=== PATIENT | female | born 1965 | race Caucasian/White ===

== ENCOUNTER 2016-12-17 18:40 | Emergency (ER) | payer MEDICAID ==
[2016-12-17 18:46] VITALS: BP 148/72; PULSE 87; RESP 20; TEMP 98
--- NOTE | 2016-12-17 19:03 | XR ---
EXAMINATION TYPE: XR hand complete LT DATE OF EXAM: 12/17/2016 7:00 PM COMPARISON: NONE HISTORY: Hand pain TECHNIQUE: 3 views FINDINGS: I see no fracture nor dislocation. Joint spaces are fairly normal. There are no erosions. IMPRESSION: Negative left hand exam.
--- NOTE | 2016-12-17 19:29 | ED ---
General Adult HPI - General Chief complaint: Extremity Problem,Nontraumatic Stated complaint: IHS??? left hand pain Time Seen by Provider: 12/17/16 18:47 Source: patient, RN notes reviewed Mode of arrival: ambulatory Limitations: no limitations - History of Present Illness Initial comments: Patient 51-year-old female who presents emergency room today with a chief complaint of increased pain to the left hand over the MCP joint of the fifth digit. Patient admits to tenderness locally worse with flexion. 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 States she's tried ibuprofen with little relief. She denies any significant injury or trauma. Patient denies any recent fever, chills , shortness of breath, chest pain, back pain, abdominal pain, nausea or vomiting , numbness or tingling, dysuria or hematuria, constipation or diarrhea, headaches or visual changes, or any other complaints. - Related Data Home Medications Medication Instructions Recorded Confirmed Metoprolol Succinate [Toprol XL] 25 mg PO DAILY 07/29/14 10/10/14 Previous Rx's Medication Instructions Recorded Famotidine [Pepcid] 20 mg PO BID #30 tablet 10/10/14 Allergies Allergy/AdvReac Type Severity Reaction Status Date / Time citalopram hydrobromide Allergy Unknown Verified 12/17/16 18:46 [From Celexa] codeine Allergy Unknown Verified 12/17/16 18:46 Sulfa (Sulfonamide Allergy Unknown Verified 12/17/16 18:46 Antibiotics) Review of Systems ROS Statement: Those systems with pertinent positive or pertinent negative responses have been documented in the HPI. ROS Other: All systems not noted in ROS Statement are negative. Past Medical History Additional Past Medical History / Comment(s): irregular heartbeat History of Any Multi-Drug Resistant Organisms: None Reported Past Surgical History: Cholecystectomy Past Psychological History: No Psychological Hx Reported Smoking Status: Never smoker Past Alcohol Use History: Occasional Past Drug Use History: None Reported General Exam - General Exam Comments Initial Comments: General: The patient is awake and alert, in no distress, and does not appear acutely ill. Neck: The neck is supple, there is no tenderness or JVD. Cardiovascular: There is a regular rate and rhythm. No murmur, rub or gallop is appreciated. Respiratory: Lungs are clear to auscultation, respirations are non-labored, breath sounds are equal. No wheezes, stridor, rales, or rhonchi. Musculoskeletal: Patient has normal appearance of the left hand no obvious swelling or bruising. Shows good range of motion slightly decreased flexion at the fifth digit at the MCP joint. Patient's sensation intact pulses equal bilaterally 2+. Strength 4/5 due to pain. Locally tender over the full her aspect of the fifth MCP joint of left hand. Neurological: A&O x 3. CN II-XII intact, There are no obvious motor or sensory deficits. Coordination appears grossly intact. Speech is normal. Skin: Skin is warm and dry and no rashes or lesions are noted. Psychiatric: Normal mood and affect. Limitations: no limitations Course Vital Signs 12/17/16 18:43 Temperature 98.0 F Pulse Rate 87 Respiratory 20 Rate Blood Pressure 148/72 O2 Sat by Pulse 100 Oximetry Medical Decision Making - Medical Decision Making X-ray reviewed and are unremarkable. Patient advised continue with anti- inflammatories ice the area and follow-up with orthopedics. Advised return for any other concerns. Disposition Clinical Impression: Hand strain Disposition: HOME SELF-CARE Condition: Good Instructions: Muscle Strain (ED) Additional Instructions: Please use medication as discussed. Follow-up orthopedics over the next 2 days. Please return to emergency room if the symptoms increase or worsen or for any other concerns. Referrals: Gideon Kothari DO [Primary Care Provider] - 1-2 days Bill Woodard DO [Doctor of Osteopathic Medicine] - 1-2 days Time of Disposition: 19:29
== END 2016-12-17 19:37 | disposition home or self-care (01) ==
LOC: EC 18:40
DX: S66.912A Strain of unspecified muscle, fascia and tendon at wrist and hand level, left hand, initial encounter (principal); Z88.5 Allergy status to narcotic agent; Z88.2 Allergy status to sulfonamides; Z88.8 Allergy status to other drugs, medicaments and biological substances; X58.XXXA Exposure to other specified factors, initial encounter
CPT/HCPCS: 99283

== ENCOUNTER → 2017-01-01 | Outpatient (CLI) | payer MEDICAID ==
--- NOTE | 2017-01-01 23:46 | WWHP ---
DATE OF DICTATION: 01/01/2017 CHIEF COMPLAINT: The patient is here for her routine gynecologic exam and mammogram. HISTORY OF PRESENT ILLNESS: This is a 51-year-old with an LMP of 11/16/16. She has brought in her menstrual calendar. Her menses have been fairly regular, about every 3-1/2 to 4 weeks. They are typically lasting 3 days. She did not have a period in November. She is without gynecologic complaints. She has had occasional hot flashes. PAST MEDICAL HISTORY: 1. Gastroesophageal reflux disease. 2. Chronic back problems. 3. History of irregular heartbeat. 4. Seasonal allergies. MEDICATIONS: 1. Omeprazole 40 mg daily. 2. Toprol XL 25 mg daily. 3. Loratadine p.r.n. ALLERGIES: 1. SULFA. 2. CODEINE. 3. CELEXA. 4. ZOLOFT. 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 She has no history of STDs. SOCIAL HISTORY: She denies tobacco and drug use and has 1 to 3 alcoholic drinks per week. 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 FAMILY HISTORY: Unchanged from the 2015 H&P. REVIEW OF SYSTEMS: Weight has been stable. She denies respiratory, cardiac or GI problems. PHYSICAL EXAM: Blood pressure 132/79. Height 5 feet 6 inches. Weight 227 pounds. Temperature 98.4. Pulse 79. This is a well-developed heavyset white female who is alert and oriented x3, in no acute distress. HEENT is within normal limits. NECK: Supple without mass or thyromegaly. CHEST AND LUNGS: Clear to auscultation. HEART: Regular rate and rhythm. Breasts are without mass or discharge. Axillary exam is negative for adenopathy. BACK: Negative for CVA tenderness. ABDOMEN: Soft, nontender, without palpable masses. PELVIC EXAM: Normal external genitalia. Cervix and vagina reveal a small amount of menstrual-type blood near the cervical os. The cervix is without lesions. There is no evidence of prolapse. The uterus is midposition, nongravid size and nontender. There are no palpable adnexal masses or tenderness. Rectovaginal exam is negative for mass or tenderness and is negative for occult blood. EXTREMITIES: Nontender. IMPRESSION: 1. A 51-year-old female with normal gynecologic exam. 2. Occasional mild vasomotor symptoms, possible perimenopause. PLAN: 1. Pap smear was performed. 2. Self breast examination was discussed. 3. Mammogram will be done today. 4. The patient will again keep a menstrual calendar. 5. I have recommended screening colonoscopy, and she states she will be seeing Dr. Gross for this. 6. She will return in one year.
--- NOTE | 2017-01-03 07:38 | MM ---
Reason for exam: screening (asymptomatic). Last mammogram was performed 1 year ago. History: Patient history of other cancer. Benign US left guided VAD of the left breast, December 13, 2008. Benign core biopsy of the right breast, December 17, 2006. Took hormonal contraceptives beginning at age 16. Physical Findings: A clinical breast exam by your physician is recommended on an annual basis and results should be correlated with mammographic findings. MG 3D Screening Mammo W/Cad Bilateral CC and MLO view(s) were taken. Prior study comparison: January 16, 2016, right breast MG 3d work up w/cad RT. January 10, 2016, bilateral MG screening mammo w CAD. The breast tissue is heterogeneously dense. This may lower the sensitivity of mammography. Previous mammotome biopsy in the right breast. No significant changes when compared with prior studies. ASSESSMENT: Benign, BI-RAD 2 RECOMMENDATION: Routine screening mammogram of both breasts in 1 year.
== END | disposition home or self-care (01) ==
LOC: WWCWWP 12:47
PROVIDERS: ATTEND Obstetrics & Gynecology
DX: Z12.31 Encounter for screening mammogram for malignant neoplasm of breast (principal)
CPT/HCPCS: 77063; G0202

== ENCOUNTER → 2017-04-25 | Outpatient (CLI) | payer MEDICAID ==
[2017-04-25 10:19] LABS: Basophils # (A) 0.1 k/uL (0-0.2); Basophils % (A) 1 %; CH 29.2; CHCM 33.5; Eosinophils # (A) 0.3 k/uL (0-0.7); Eosinophils % (A) 4 %; HCT 38.5 % (34.0-46.0); HDW 2.87; HGB 13.4 gm/dL (11.4-16.0); Luc # (Auto) 0.15; Luc % (Auto) 2; Lymphocytes # (A) 1.5 k/uL (1.0-4.8); Lymphocytes % (A) 20 %; MCH 30.5 pg (25.0-35.0); MCHC 34.8 g/dL (31.0-37.0); MCV 87.8 fL (80.0-100.0); Mean Platelet Volume 7.1; Monocytes # (A) 0.3 k/uL (0-1.0); Monocytes % (A) 4 %; Neutrophils # (A) 5.1 k/uL (1.3-7.7); Neutrophils % (A) 70 %; RBC 4.39 m/uL (3.80-5.40); RDW 13.9 % (11.5-15.5); WBC 7.3 k/uL (3.8-10.6); WBC (Perox) 7.47
[2017-04-25 10:21] LABS: Anion Gap 13 mmol/L; Carbon Dioxide 23 mmol/L (22-30); Chloride 104 mmol/L (98-107); Glucose 103 mg/dL (74-99); Potassium 4.1 mmol/L (3.5-5.1); Sodium 140 mmol/L (137-145)
[2017-04-25 10:22] LABS: ALT 39 U/L (9-52); AST 23 U/L (14-36); Alkaline Phosphatase 83 U/L (38-126); Blood Urea Nitrogen 11 mg/dL (7-17); Calcium 8.7 mg/dL (8.4-10.2); Cholesterol 173 mg/dL (<200); HDL Cholesterol 54 mg/dL (40-60); Non-African American GFR(MDRD) >60 (>60 ml/min/1.73 sqM); Total Protein 7.1 g/dL (6.3-8.2); Triglycerides 64 mg/dL (<150)
== END | disposition home or self-care (01) ==
LOC: LABWHC1 09:19
PROVIDERS: ATTEND Family Medicine
DX: Z00.00 Encounter for general adult medical examination without abnormal findings (principal); I10 Essential (primary) hypertension
CPT/HCPCS: 36415; 80053; 80061; 82652; 84443; 85025

== ENCOUNTER → 2018-02-10 | Outpatient (CLI) | payer MEDICAID ==
--- NOTE | 2018-02-10 16:13 | XR ---
PA chest x-ray with right RIBS HISTORY: Chest pain Frontal view of the chest, 4 views of the right RIBS There is no evident airspace disease, pneumothorax, or pleural effusion. Cardiomediastinal silhouette , pulmonary vascularity and marie within normal limits. No evident displaced rib fracture. Surgical cl ips present in the right upper quadrant. IMPRESSION: No acute abnormality. Bone scan may be of benefit.
== END | disposition home or self-care (01) ==
LOC: RADXRYALE 15:05
PROVIDERS: ATTEND Family Medicine
DX: R07.89 Other chest pain (principal)

== ENCOUNTER → 2018-03-18 | Outpatient (CLI) | payer MEDICAID ==
[2018-03-18 13:49] VITALS: BP 134/83; PULSE 72; TEMP 98.1; BMI 35.5
--- NOTE | 2018-03-18 14:28 | P.HPOB ---
History of Present Illness H&P Date: 03/18/18 Chief Complaint: The patient is here for her routine gynecologic exam and mammogram. This is a 52-year-old with an LMP of 5 to 18. She is on Tri-Sprintec for control. She was started on the control pill by Dr. Alamo in August 2017. She had some breakthrough bleeding in September but periods have been regular every month since then. She has had some breast tenderness in the morning during the past 2 weeks. She is otherwise without gynecologic complaints. Review of Systems The patient has lost 7 pounds over the last year. She denies respiratory, cardiac, or G.I. problems. Past Medical History Past Medical History: GERD/Reflux Additional Past Medical History / Comment(s): irregular heartbeat. Chronic back problems and seasonal allergies. 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 She has no history of STDs. She has had for vaginal deliveries. History of Any Multi-Drug Resistant Organisms: None Reported Past Surgical History: Cholecystectomy Additional Past Surgical History / Comment(s): Colonization of the cervix in the past. Past Psychological History: No Psychological Hx Reported Smoking Status: Unknown if ever smoked Past Alcohol Use History: Occasional (2 or 3 per week) Past Drug Use History: None Reported Additional History: She is and has been with her boyfriend since March 2017. She does not live with him. He lives out of [facility]. 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 [employer] - Past Family History Father Family Medical History: Cancer (Prostate), CVA/TIA, Myocardial Infarction (PR) Mother Family Medical History: Congestive Heart Failure (CHF), Diabetes Mellitus, Hypertension Medications and Allergies Home Medications Medication Instructions Recorded Confirmed Type Metoprolol Succinate [Toprol XL] 25 mg PO DAILY 07/29/14 03/18/18 History Famotidine [Pepcid] 20 mg PO BID #30 tablet 10/10/14 03/18/18 Rx Norgestimate-Ethinyl Estradiol 1 tab PO DAILY 03/18/18 03/18/18 History [Tri-Sprintec Tablet] Allergies Allergy/AdvReac Type Severity Reaction Status Date / Time citalopram hydrobromide Allergy Unknown Verified 03/18/18 13:46 [From Celexa] codeine Allergy Unknown Verified 03/18/18 13:46 Sulfa (Sulfonamide Allergy Unknown Verified 03/18/18 13:46 Antibiotics) Exam - Vital Signs Vital signs: Vital Signs Temp Pulse BP 03/18/18 13:46 98.1 F 72 134/83 Intake and Output 03/17/18 03/18/18 03/18/18 22:59 06:59 14:59 Other: Weight 99.79 kg Height 5'6", BMI 35.5. This is a well-developed well-nourished heavyset white female who is alert and oriented times 3 in no acute distress. HEENT: Within normal limits. NECK: Supple without mass or thyromegaly. CHEST AND LUNGS: Clear to auscultation. There is tenderness over the lower right ribs. She has been undergoing workup for this discomfort. HEART: Regular rate and rhythm. BREASTS: Are without mass or discharge. AXILLARY EXAM: Negative for adenopathy. BACK: Negative for CVA tenderness. ABDOMEN: Soft, nontender, without palpable masses. PELVIC EXAM: Normal external genitalia. Cervix and vagina appear normal. There is no unusual discharge. There is no evidence of prolapse. The uterus is midposition, nongravid size and nontender. There are no palpable adnexal masses or tenderness. RECTAL EXAM: rectovaginal exam is negative for mass or tenderness and is negative for occult blood. EXTREMITIES: Nontender. IMPRESSION: 1. 52 year old female with normal gynecologic exam. 2. The patient is doing well on oral contraception which was started by her primary care physician for control. PLAN: 1. Pap smear was deferred since she had a normal one last year. 2. Self breast awareness was discussed. 3. Screening mammogram will be done today. 4. We have had a long discussion regarding oral contraception. She understands that she may be at a slightly greater risk for blood clots, heart attack, and stroke while on oral contraception. I have recommended FSH testing at the end of the inactive pill week. An order slip was given to the patient for this. We can do this yearly to determine if she still is in need of contraception. Once determined menopausal, she will not need control. 5. Osteoporosis prevention was discussed. 6. I have recommended screening colonoscopy based on her age. She states she will look into doing this through Dr. Kothari's office. 7. She will return in one year.
--- NOTE | 2018-03-19 11:29 | MM ---
Reason for exam: screening (asymptomatic). Last mammogram was performed 1 year and 2 months ago. History: Patient history of other cancer. Benign US left guided VAD of the left breast, December 13, 2008. Benign core biopsy of the right breast, December 17, 2006. Took hormonal contraceptives beginning at age 16. Physical Findings: A clinical breast exam by your physician is recommended on an annual basis and results should be correlated with mammographic findings. MG 3D Screening Mammo W/Cad Bilateral CC and MLO view(s) were taken. Prior study comparison: January 01, 2017, bilateral MG 3d screening mammo w/cad. January 16, 2016, right breast MG 3d work up w/cad RT. The breast tissue is heterogeneously dense. This may lower the sensitivity of mammography. Previous mammotome biopsy in the left breast. No significant changes when compared with prior studies. ASSESSMENT: Benign, BI-RAD 2 RECOMMENDATION: Routine screening mammogram of both breasts in 1 year.
== END | disposition home or self-care (01) ==
LOC: WWCWWP 13:16
PROVIDERS: ATTEND Obstetrics & Gynecology
DX: Z12.31 Encounter for screening mammogram for malignant neoplasm of breast (principal)
CPT/HCPCS: 77063; 77067

== ENCOUNTER → 2018-03-21 | Outpatient (CLI) | payer MEDICAID ==
--- NOTE | 2018-03-21 15:25 | CT ---
EXAMINATION TYPE: CT abdomen w con DATE OF EXAM: 03/21/2018 HISTORY: RUQ pain and swelling CT DLP: 900.2mGycm Automated Exposure Control for Dose Reduction was Utilized. CONTRAST: CT scan of the abdomen and pelvis is performed with IV Contrast, patient injected with 100 mL of Isov ue 300. COMPARISON: None. FINDINGS: LUNG BASES: There is minimal bibasilar subsegmental dependent atelectasis. Additionally contrast is s een within the distal esophagus that could relate to reflux or retention of contrast. LIVER/GB: No significant abnormality is appreciated. Liver enhances homogeneously without focal mass. No intrahepatic biliary ductal dilatation is seen. Gallbladder is surgically absent. PANCREAS: Pancreas enhances homogeneously without ductal dilatation. SPLEEN: No significant abnormality is seen. ADRENALS: No nodularity or thickening. KIDNEYS: Bilateral small extrarenal pelvises sees are seen. Kidneys enhance and excrete symmetrically without hydronephrosis or focal renal mass. BOWEL: Gastric antral thickening may relate to degree of peristalsis or gastritis in this patient wit h right upper quadrant pain. Appendix is air-filled and within normal limits. Bowel is nondilated. UTERUS/ADNEXA: Partially visualized with no gross abnormality seen. LYMPH NODES: No greater than 1cm abdominal or pelvic lymph nodes are appreciated. OSSEOUS STRUCTURES: Mild sacroiliac joint sclerosis is likely degenerative and overall symmetric. Min imal degenerative changes of the visualized spine are also seen. OTHER: There is mild diastases recti and a tiny subcentimeter fat filled umbilical hernia. IMPRESSION: Circumferential gastric antral mucosal thickening could relate to degree of peristalsis, however this may also relate to gastritis in a patient with right upper quadrant pain. At there is fu rther concern endoscopy could be performed. Additionally there is contrast within the distal esophagu s that could relate to reflux or retention.
== END | disposition home or self-care (01) ==
LOC: RADCTMAIN 12:48
PROVIDERS: ATTEND Family Medicine
DX: R93.3 Abnormal findings on diagnostic imaging of other parts of digestive tract (principal); R10.11 Right upper quadrant pain
CPT/HCPCS: 74160; Q9967

== ENCOUNTER 2018-11-21 12:06 | Day surgery (SDC) | payer MEDICAID ==
[2018-11-19 09:23] VITALS: BMI 38.7
[~2018-11-21 12:06] MED LIST: LACTATED RINGERS 1,000 ML IV SCH
[2018-11-21] MEDS ORDERED: LIDOCAINE 1% 20 ML VIAL (10MG/ML) FOR IV START INTRADERMA ONE (13:10)
[2018-11-21 13:13] VITALS: TEMP 98.9
[2018-11-21] MEDS ORDERED: LIDOCAINE 1% INJ 10MG/ML (20 ML MDV) ONE (13:58)
[2018-11-21] MEDS ORDERED: fentaNYL (PF) 50 MCG/ML 2 ML AMP ONE (13:58)
[2018-11-21] MEDS ORDERED: PROPOFOL 10 MG/ML 20 ML VIAL IV ONE (13:58)
[2018-11-21] MEDS ORDERED: MIDAZOLAM 2 MG/2 ML VIAL ONE (13:58)
--- NOTE | 2018-11-21 14:23 | P.PCN ---
Date of Procedure: 11/21/18 Procedure(s) Performed: Brief history: Patient is a pleasant 53-year-old pleasant white female, scheduled for an elective upper endoscopy as well as colonoscopy as a part of evaluation of right upper quadrant abdominal pain for the last 6 months duration. She is also scheduled for colonoscopy as a part of screening for colorectal neoplasia. Procedure performed: Esophagogastroduodenoscopy with biopsy Colonoscopy Preoperative diagnosis: Right upper quadrant abdominal pain/GERD Screening for colon cancer Anesthesia: MAC Procedure: After informed consent was obtained from the patient was brought into the endoscopy unit and IV sedation was administered by anesthesia under continuous monitoring. Initially upper endoscopy was done. The Olympus GF 160 video endoscope was inserted inserted into the mouth and esophagus intubated without any difficulty and was gradually advanced into the stomach and duodenum and carefully examined. The bulb and second part of the duodenum appeared normal. The scope was then withdrawn into the stomach adequately insufflated with air and upon careful examination the antrum had mild gastritis and biopsies were done from this area. The small gastric polyps and in the body of the stomach which were also biopsied. Rest of the body, cardia and fundus appeared normal. The scope was then withdrawn into the esophagus. The GE junction was located at 40 cm to the incisors. It appeared regular with no erythema erosions or ulcerations. Rest of the esophagus appeared normal. Patient tolerated the procedure well. At this time the patient continued to remain sedation. Initial digital rectal examination was normal. Olympus CF 160 video colonoscope was then inserted into the rectum and gradually advanced to the cecum without any difficulty. Careful examination was performed as the scope was gradually being withdrawn. The prep was excellent. The cecum, ascending colon, transverse colon, descending colon, sigmoid colon and rectum appeared normal. Retroflexion was performed in the rectum and no lesions were noted. Patient tolerated the procedure well. Impression: 1. Upper endoscopy revealed mild gastritis and small gastric polyps 2. Colonoscopy was within normal limits with no evidence of colitis or colorectal neoplasia. Recommendations: Findings of this examination were discussed with the patient as well as her family. She was advised to follow with the biopsy results. She will continue with Prilosec 20 mg twice daily and follow antireflux measures. She will be seen in office in 3-4 weeks.
[2018-11-21 14:30] VITALS: RESP 18
[2018-11-21 14:55] VITALS: BP 136/86; PULSE 71
== END 2018-11-21 15:15 | disposition home or self-care (01) ==
LOC: ORWHC2ENDO 12:06
PROVIDERS: ATTEND Internal Medicine Gastroenterology
DX: Z12.11 Encounter for screening for malignant neoplasm of colon (principal); K29.50 Unspecified chronic gastritis without bleeding; K31.7 Polyp of stomach and duodenum; K21.9 Gastro-esophageal reflux disease without esophagitis; Z79.1 Long term (current) use of non-steroidal anti-inflammatories (NSAID); Z79.3 Long term (current) use of hormonal contraceptives; Z79.899 Other long term (current) drug therapy; Z88.5 Allergy status to narcotic agent; Z88.2 Allergy status to sulfonamides; Z88.8 Allergy status to other drugs, medicaments and biological substances; Z91.09 Other allergy status, other than to drugs and biological substances
CPT/HCPCS: 88305; 43239; J2250; J2001; J3010; J2704; G0121

== ENCOUNTER → 2019-06-09 | Outpatient (CLI) | payer MEDICAID ==
[2019-06-09 11:35] VITALS: BP 118/76; PULSE 68; RESP 18; TEMP 98.3; BMI 38.2
--- NOTE | 2019-06-09 12:33 | P.HPOB ---
History of Present Illness H&P Date: 06/09/19 Chief Complaint: The patient is here for her routine gynecologic exam and ma mmogram. This is a 53 year old with an LMP of 05/20/2019. The patient is without gynecologic complaints. Her menstrual periods are about monthly lasting 2 to 3 days. She denies any significant hot flashes. Review of Systems The patient has gained 16 pounds over the last year. She denies respiratory, cardiac, or G.I. problems. Past Medical History Past Medical History: GERD/Reflux Additional Past Medical History / Comment(s): Irregular heartbeat. Environmental Allergies. States Pain RUQ ABD, UNDER RIBS. Chronic back problems. 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 She had a CKC for high-grade cervical dysplasia years ago. History of Any Multi-Drug Resistant Organisms: None Reported Past Surgical History: Cholecystectomy Additional Past Surgical History / Comment(s): Conization of the cervix in the p ast. Colonoscopy 2019(next after 10yrs) Past Anesthesia/Blood Transfusion Reactions: Motion Sickness Past Psychological History: No Psychological Hx Reported Smoking Status: Former smoker Past Alcohol Use History: Occasional (0-2 per week) Additional Past Alcohol Use History / Comment(s): Previous social smoker and she has quit. Past Drug Use History: None Reported Additional History: She is . She has been with her boyfriend since December 2018. She does not live with him. She works at [employer] in [facility]. - Past Family History Father Family Medical History: Cancer, CVA/TIA, Myocardial Infarction ([place]) Additional Family Medical History / Comment(s): prostate cancer Mother Family Medical History: Congestive Heart Failure (CHF), Diabetes Mellitus, Hypertension Daughter(s) Family Medical History: Cancer Additional Family Medical History / Comment(s): low grade non hodgkins lymphoma of her gums Medications and Allergies Home Medications Medication Instructions Recorded Confirmed Type Norgestimate-Ethinyl Estradiol 1 tab PO 1200 03/18/18 06/09/19 History [Tri-Sprintec Tablet] Ibuprofen [Motrin Ib] 800 mg PO DIRECTED PRN 07/29/18 06/09/19 History Loratadine 10 mg PO QAM 07/29/18 06/09/19 History Metoprolol Succinate (ER) [Toprol 25 mg PO HS 07/29/18 06/09/19 History Xl] Omeprazole 40 mg PO QAM 07/29/18 06/09/19 History Allergies Allergy/AdvReac Type Severity Reaction Status Date / Time codeine Allergy Severe SEVERE Verified 06/09/19 11:16 NAUSEA Sulfa (Sulfonamide Allergy Severe Rash/Hives, Verified 06/09/19 11:16 Antibiotics) SEVER HEADACHE, COULDN'T TALK OR SEE. adhesive Allergy Unknown RED BUMPS, Verified 06/09/19 11:16 SKIN IRRITATION citalopram hydrobromide Allergy HEAD FELT Verified 06/09/19 11:16 [From Celexa] NUMB, DID NOT FEEL WELL. sertraline [From Zoloft] AdvReac Unknown HEAD FELT Verified 06/09/19 11:16 NUMB Exam Vital Signs Temp Pulse Resp BP Pulse Ox 06/09/19 11:17 98.3 F 68 18 118/76 98 Intake and Output 06/08/19 06/09/19 06/09/19 22:59 06:59 14:59 Other: Weight 107.501 kg Height 5'6", weight 237 pounds, BMI 38.3. This is a well-developed well-nourished heavyset white female who is alert and oriented times 3 in no acute distress. HEENT: Within normal limits. NECK: Supple without mass or thyromegaly. CHEST AND LUNGS: Clear to auscultation. HEART: Regular rate and rhythm. BREASTS: Are without mass or discharge. AXILLARY EXAM: Negative for adenopathy. BACK: Negative for CVA tenderness. ABDOMEN: Soft, nontender, without palpable masses. PELVIC EXAM: Normal external genitalia. Cervix and vagina appear normal. There is no unusual discharge. There is no evidence of prolapse. The uterus is midposition, nongravid size and nontender. There are no palpable adnexal masses or tenderness. RECTAL EXAM: rectovaginal exam is negative for mass or tenderness and is negative for occult blood. EXTREMITIES: Nontender. IMPRESSION: 1. 53-year-old female with normal gynecologic exam. 2. The patient is on oral contraception which was started by her primary care physician for control. PLAN: 1. Pap smear was performed. 2. Self breast awareness was discussed with the patient. 3. Screening mammogram will be done today. 4. We discussed possible FSH testing when she is at the end of her inactive pill week, or a trial off of the control pills to determine if she still is in need of contraception. If we determine that she has menopausal, she will not need control. She would like to have blood testing at the end of her inactive pill week. This will be FSH and estradiol testing. The order slip was given to the patient for this. If she is determined to be menopausal, we will be allowed to discontinue the control pills. 5. Osteoporosis prevention was discussed. I have stressed the importance of adequate calcium, vitamin D and regular exercise. Recommended amounts of calcium and vitamin D were also discussed. 6. She was advised to return in one year for her annual well woman exam.
--- NOTE | 2019-06-11 10:37 | MM ---
Reason for exam: screening (asymptomatic). Last mammogram was performed 1 year and 3 months ago. History: Patient history of other cancer. Benign US left guided VAD of the left breast, December 13, 2008. Benign core biopsy of the right breast, December 17, 2006. Took hormonal contraceptives beginning at age 16. Physical Findings: A clinical breast exam by your physician is recommended on an annual basis and results should be correlated with mammographic findings. MG 3D Screening Mammo W/Cad Bilateral CC and MLO view(s) were taken. XCCL view(s) were taken of the right breast. Prior study comparison: March 18, 2018, bilateral MG 3d screening mammo w/cad. January 01, 2017, bilateral MG 3d screening mammo w/cad. The breast tissue is heterogeneously dense. This may lower the sensitivity of mammography. Benign appearing bilateral calcifications. No suspicious abnormality. Left biopsy marker noted. No significant changes when compared with prior studies. ASSESSMENT: Benign, BI-RAD 2 RECOMMENDATION: Routine screening mammogram of both breasts in 1 year.
== END ==
LOC: WWCWWP 11:09
PROVIDERS: ATTEND Obstetrics & Gynecology
DX: Z12.31 Encounter for screening mammogram for malignant neoplasm of breast (principal)
CPT/HCPCS: 77063; 77067

== ENCOUNTER → 2019-06-20 | Outpatient (CLI) | payer MEDICAID ==
[2019-06-20 17:56] LABS: Follicle Stimulating Hormone 31.4 mIU/mL
[2019-06-20 18:09] LABS: Estradiol <11.8 pg/mL
== END | disposition home or self-care (01) ==
LOC: LABWHC1 10:37
PROVIDERS: ATTEND Obstetrics & Gynecology
DX: N92.4 Excessive bleeding in the premenopausal period (principal)
CPT/HCPCS: 36415; 82670; 83001

== ENCOUNTER → 2020-01-08 | Outpatient (CLI) | payer MEDICAID ==
[2020-01-08 11:54] LABS: HCT 42.3 % (34.0-46.0); HGB 13.4 gm/dL (11.4-16.0); MCH 27.5 pg (25.0-35.0); MCHC 31.6 g/dL (31.0-37.0); MCV 86.8 fL (80.0-100.0); Mean Platelet Volume 8.1; Platelet Count 273 k/uL (150-450); RBC 4.87 m/uL (3.80-5.40); RDW 14.2 % (11.5-15.5); WBC 6.6 k/uL (3.8-10.6)
[2020-01-08 16:18] LABS: African American GFR (CKD) 112.3 (60.0-200.0); Albumin 4.3 g/dL (3.80-4.90); Albumin/Globulin Ratio 1.65 (1.60-3.17); Anion Gap 11.3 mmol/L (4.00-12.00); Calcium 9.5 mg/dL (8.7-10.3); Carbon Dioxide 25.7 mmol/L (21.6-31.8); Chol/HDL Ratio 3.13; Globulin 2.6 g/dL (1.6-3.3); LDL Cholesterol,Calculated 112.8 mg/dL (0.0-131.0); Non-African American GFR(CKD) 96.9 (60.0-200.0); Potassium 4.4 mmol/L (3.5-5.5); Total Bilirubin 1.4 mg/dL (0.2-1.2); Total Protein 6.9 g/dL (6.2-8.2); VLDL Calculation 15.2 mg/dL (5.00-40.00)
== END | disposition home or self-care (01) ==
LOC: LABWHC1 10:14
PROVIDERS: ATTEND Family Medicine
DX: Z00.00 Encounter for general adult medical examination without abnormal findings (principal); I10 Essential (primary) hypertension; J30.9 Allergic rhinitis, unspecified; Z13.220 Encounter for screening for lipoid disorders; E55.9 Vitamin D deficiency, unspecified
CPT/HCPCS: 36415; 80053; 80061; 82306; 84443; 85027

== ENCOUNTER → 2020-03-31 | Outpatient (CLI) | payer MEDICAID ==
--- NOTE | 2020-03-31 14:40 | XR ---
EXAMINATION TYPE: XR clavicle bilateral DATE OF EXAM: 03/31/2020 COMPARISON: NONE HISTORY: pain TECHNIQUE: 2 views of each clavicle are submitted with a total of 4 views. FINDINGS: Arthropathy of the AC joints bilaterally greater on the right. No acute fracture. No disloc ation. IMPRESSION: AC joint arthropathy greater on the right with no acute fracture.
--- NOTE | 2020-03-31 14:42 | XR ---
EXAMINATION TYPE: XR cervical spine comp DATE OF EXAM: 03/31/2020 COMPARISON: NONE HISTORY: Pain TECHNIQUE: Four views are submitted. FINDINGS: The odontoid is intact. There are no compression deformities. The prevertebral soft tissue structur es are within normal limits. There is degenerative disc disease at levels C3-T1. Findings most marke d at C5-C6 with posterior spondylosis and hypertrophic spur formation. Neural foramina appear to be p atent. IMPRESSION: 1. Multilevel degenerative disc disease with severe changes at C5-C6. There is posterior spondylosis which can result in canal stenosis and foraminal encroachment. Correlate with MRI as clinically warra nted.
--- NOTE | 2020-03-31 14:43 | XR ---
EXAMINATION TYPE: XR shoulder complete BILAT DATE OF EXAM: 03/31/2020 COMPARISON: NONE HISTORY: Pain TECHNIQUE: Three views are submitted. FINDINGS: The osseous structures are intact. There is no acute fracture or dislocation. Arthropathy of the AC joints. IMPRESSION: 1. AC joint arthropathy
== END | disposition home or self-care (01) ==
LOC: RADXRMAIN 13:53
PROVIDERS: ATTEND Emergency Medicine
DX: M50.322 Other cervical disc degeneration at C5-C6 level (principal); M47.812 Spondylosis without myelopathy or radiculopathy, cervical region; M48.02 Spinal stenosis, cervical region; S46.89 Other injury of other muscles, fascia and tendons at shoulder and upper arm level
CPT/HCPCS: 72050

== ENCOUNTER → 2020-04-22 | Outpatient (CLI) | payer MEDICAID ==
--- NOTE | 2020-04-22 15:08 | US ---
EXAMINATION TYPE: US carotid duplex BILAT DATE OF EXAM: 04/22/2020 COMPARISON: NONE CLINICAL HISTORY: H53.8 Other visual disturbances. visual changes for the past 2 weeks, no h/o stroke EXAM MEASUREMENTS: RIGHT: Peak Systolic Velocity (PSV) cm/sec ----- Right CCA: 123 ----- Right ICA: 123 ----- Right ECA: 138 ICA/CCA ratio: 1.0 RIGHT: End Diastole cm/sec ----- Right CCA: 16.9 ----- Right ICA: 45.4 ----- Right ECA: 26.4 LEFT: Peak Systolic Velocity (PSV) cm/sec ----- Left CCA: 93.5 ----- Left ICA: 116.0 ----- Left ECA: 110 ICA/CCA ratio: 1.2 LEFT: End Diastole cm/sec ----- Left CCA: 29.2 ----- Left ICA: 34.4 ----- Left ECA: 1.2 VERTEBRALS (direction of flow): Right Vertebral: Antegrade Left Vertebral: Antegrade Rhythm: Normal Mild homogeneous plaque seen with no significant stenosis . Velocities are approaching 50% narrowing without visual significant plaquing. IMPRESSION: 1. Atheromatous plaquing without significant flow-limiting stenosis. Criteria for Assigning % of Stenosis / Diameter reduction (Estimation based on the indirect measurements of the internal carotid artery velocities (ICA PSV). 1. Normal (no stenosis)=ICA PSV < 125 cm/s: ratio < 2.0: ICA EDV<40 cm/s. 2. Less than 50% stenosis=ICA PSV < 125 cm/s: ratio < 2.0: ICA EDV<40 cm/s. 3. 50 to 69% stenosis=ICA PSV of 125 to 230 cm/s: ration 2.0 ? 4.0: ICA EDV 40-100 cm/s. 4. Greater than 70% stenosis to near occlusion= ICA PSV > 230 cm/s: ratio > 4.0: ICA EDV > 100 cm/s. 5. Near occlusion= ICA PSV velocities may be low or undetectable: variable ratio and ICA EDV. 6. Total occlusion=unable to detect flow.
== END | disposition home or self-care (01) ==
LOC: RADUSWWP 08:09
PROVIDERS: ATTEND Family Medicine
DX: H53.8 Other visual disturbances (principal); M54.2 Cervicalgia; R55 Syncope and collapse
CPT/HCPCS: 93880

== ENCOUNTER → 2020-05-26 | Outpatient (CLI) | payer MEDICAID ==
--- NOTE | 2020-05-27 02:48 | MR ---
EXAMINATION TYPE: MR cervical spine wo con DATE OF EXAM: 05/26/2020 COMPARISON: None HISTORY: Cervicalgia, BALDERAS, weakness Multiplanar multiecho imaging of the cervical spine was performed without contrast. Cervical vertebra have normal alignment. There is mild narrowing of C5-6 disc space. There is small p osterior disc herniation at C5-6 with some impingement on the anterior surface of the cervical spinal cord. The canal measures 6 to 7 mm. I see no edema in the cord. The brainstem is intact. There is no cervical paraspinal mass. Posterior elements are intact. I see no evidence of focal bony destructive process. IMPRESSION: Posterior disc herniation at C5-6 with some mild impingement on the spinal canal. There is 7 mm mild spinal stenosis at C5-6. No edema seen in the cervical spinal cord.
== END | disposition home or self-care (01) ==
LOC: RADMRIMAIN 13:53
PROVIDERS: ATTEND Orthopaedic Surgery Orthopaedic Surgery of the Spine
DX: M48.02 Spinal stenosis, cervical region (principal); M50.822 Other cervical disc disorders at C5-C6 level
CPT/HCPCS: 72141

== ENCOUNTER → 2020-06-07 | Outpatient (CLI) | payer MEDICAID ==
--- NOTE | 2020-06-07 16:15 | XR ---
Bilateral RIBS HISTORY: Pain 4 views of the right ribs and 4 views of the left ribs are submitted Bone mineralization is maintained. No evident displaced rib fracture. No pneumothorax or pleural effu kadi. Thoracic spondylosis is present. Surgical clips are present in the right upper quadrant. IMPRESSION: No acute abnormality. Bone scan could be performed for increased sensitivity as indicated .
== END | disposition home or self-care (01) ==
LOC: RADXRMAIN 14:17
PROVIDERS: ATTEND Physical Medicine & Rehabilitation
DX: M51.34 Other intervertebral disc degeneration, thoracic region (principal); R07.81 Pleurodynia; M79.18 Myalgia, other site; G58.0 Intercostal neuropathy; Z86.79 Personal history of other diseases of the circulatory system
CPT/HCPCS: 71110

== ENCOUNTER → 2020-06-22 | Outpatient (CLI) | payer MEDICAID ==
--- NOTE | 2020-06-26 16:50 | MR ---
EXAMINATION TYPE: MR thoracic spine wo con DATE OF EXAM: 06/22/2020 COMPARISON: None HISTORY: Mid back/rt side pain x 2 years CONTRAST: Performed utilizing 0 mL intravenous Gadavist gadolinium contrast. TECHNIQUE: Multiplanar, multiecho imaging on a 3.0 Magui magnet is performed through the thoracic spi ne. Syrinx is present. This faintly begins approximately the T5 level and becomes more apparent at the in ferior T7 level. This continues through T12. Study is without contrast. Additional evaluation with co ntrast MRI thoracic spine is recommended. Vertebral body alignment is normal. Vertebral body heights are preserved. Disc heights are preserved. Disc hydration levels are preserved. Schmorl's node formation is evident. No spinal canal stenosis is evident. IMPRESSIONS: 1. Mid thoracic spine syrinx. Thoracic spinal cord syrinx extending from T5 through T12 appears larg est at the T7-T8 levels. Recommendations: 1. Additional workup with contrast MRI is recommended.
== END | disposition home or self-care (01) ==
LOC: RADMRIMAIN 18:34
PROVIDERS: ATTEND Physical Medicine & Rehabilitation
DX: G95.0 Syringomyelia and syringobulbia (principal)
CPT/HCPCS: 72146

== ENCOUNTER → 2020-06-29 | Outpatient (CLI) | payer MEDICAID ==
--- NOTE | 2020-06-30 04:42 | MR ---
EXAMINATION TYPE: MR thoracic spine wo/w con DATE OF EXAM: 06/29/2020 COMPARISON: 06/22/2020 HISTORY: Mid back pain, abnormal MRI 06-22-20 CONTRAST: Standard multiplanar, multisequence MRI departmental protocol utilizing 11.5 mL intravenous Gadavist gadolinium contrast. The thoracic vertebra have normal alignment. Disc spaces are fairly normal. There is no thoracic spin al stenosis. There is no thoracic compression fracture. There is no thoracic paraspinal mass. The pos terior elements are intact. There is mild posterior disc herniation at C5-6 with some encroachment on the spinal canal and approx imate 7 mm spinal stenosis. There is no evidence of edema of the cervical spinal cord. There is enlargement of the spinal cord spinal canal with fluid extending from the level of T5 verteb ra to T11 vertebra related to syringomyelia. The syrinx is largest at the T9 level and measures up to 4 mm in diameter. There is no evidence of thoracic cord mass. There is no pathologic enhancement. IMPRESSION: There is syrinx of the mid and lower thoracic spinal cord. No evidence of underlying mass. C5-6 spina l stenosis related to posterior disc herniation. The syrinx appears unchanged compared to recent MR s can.
== END | disposition home or self-care (01) ==
LOC: RADMRIMAIN 19:22
PROVIDERS: ATTEND Physical Medicine & Rehabilitation
DX: M54.6 Pain in thoracic spine (principal)
CPT/HCPCS: 72157; A9585

== ENCOUNTER → 2020-07-26 | Outpatient (CLI) | payer MEDICAID ==
[2020-07-26 11:04] VITALS: BP 138/81; PULSE 74; RESP 18; TEMP 98.8
--- NOTE | 2020-07-26 11:44 | P.HPOB ---
History of Present Illness H&P Date: 07/26/20 Chief Complaint: The patient is here for her routine gynecologic exam and ma mmogram. This is a 54-year-old with an LMP of 07/17/2019. She discontinued her control pills about 13 months ago and since then she has been amenorrheic. She has occasional mild hot flashes which are not bothersome. Her last Pap smear on 06/09/2019 showed low-grade OSEAS with negative high-risk HPV testing. She is scheduled for some type of back and neck surgery in July. She has been having some lower rib tenderness which she was told was related to her back and neck problems. She denies any low abdominal tenderness or pain. Review of Systems The patient has gained 27 pounds over the last year. She denies respiratory, cardiac, or G.I. problems. Past Medical History Past Medical History: GERD/Reflux, Hypertension, Osteoarthritis (OA) Additional Past Medical History / Comment(s): Irregular heartbeat. Environmental Allergies. States Pain RUQ ABD, UNDER RIBS. Chronic back pr oblems. Degenerative disc disease. 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 She had a CKC for high-grade cervical dysplasia years ago. History of Any Multi-Drug Resistant Organisms: None Reported Past Surgical History: Cholecystectomy Additional Past Surgical History / Comment(s): Conization of the cervix in the past. Colonoscopy 2018(next after 10yrs) Past Anesthesia/Blood Transfusion Reactions: Motion Sickness Past Psychological History: No Psychological Hx Reported Smoking Status: Former smoker Past Alcohol Use History: Occasional (0-2 per week) Additional Past Alcohol Use History / Comment(s): Previous social smoker and she has quit. Past Drug Use History: None Reported Additional History: She is . She has been with her boyfriend since December 2018. She does not live with him. She works at [employer] in [employer] but has been off work because of her back and neck problems since May 2020. - Past Family History Father Family Medical History: Cancer, CVA/TIA, Myocardial Infarction ([place]) Additional Family Medical History / Comment(s): prostate cancer Mother Family Medical History: Congestive Heart Failure (CHF), Diabetes Mellitus, Hypertension Daughter(s) Family Medical History: Cancer Additional Family Medical History / Comment(s): low grade non hodgkins lymphoma of her gums Medications and Allergies Home Medications Medication Instructions Recorded Confirmed Type Loratadine 10 mg PO QAM 07/29/18 07/26/20 History Metoprolol Succinate (ER) [Toprol 25 mg PO HS 07/29/18 07/26/20 History Xl] Omeprazole 40 mg PO QAM 07/29/18 07/26/20 History Cholecalciferol [Vitamin D3 (25 1,000 unit PO DAILY 07/26/20 07/26/20 History Mcg = 1000 Iu)] Etodolac [Lodine] 400 mg PO BID 07/26/20 07/26/20 History Gabapentin 300 mg PO TID 07/26/20 07/26/20 History Losartan [Cozaar] 50 mg PO DAILY 07/26/20 07/26/20 History Allergies Allergy/AdvReac Type Severity Reaction Status Date / Time codeine Allergy Severe SEVERE Verified 07/26/20 10:51 NAUSEA Sulfa (Sulfonamide Allergy Severe Rash/Hives, Verified 07/26/20 10:51 Antibiotics) SEVER HEADACHE, COULDN'T TALK OR SEE. adhesive Allergy Unknown RED BUMPS, Verified 07/26/20 10:51 SKIN IRRITATION citalopram hydrobromide Allergy HEAD FELT Verified 07/26/20 10:51 [From Celexa] NUMB, DID NOT FEEL WELL. sertraline [From Zoloft] AdvReac Unknown HEAD FELT Verified 07/26/20 10:51 NUMB Exam Vital Signs Temp Pulse Resp BP Pulse Ox 07/26/20 10:58 98.8 F 74 18 138/81 98 Intake and Output 07/25/20 07/26/20 07/26/20 22:59 06:59 14:59 Other: Weight 119.748 kg Height 5 feet 7 inches, weight 264 pounds, BMI 41.3. This is a well-developed well-nourished heavyset white female who is alert and oriented times 3 in no acute distress. HEENT: Within normal limits. NECK: Supple without mass or thyromegaly. CHEST AND LUNGS: Clear to auscultation. There is mild tenderness along the inferior rib cage. HEART: Regular rate and rhythm. BREASTS: Are without mass or discharge. AXILLARY EXAM: Negative for adenopathy. BACK: Negative for CVA tenderness. ABDOMEN: Soft, obese, without palpable masses. There is mild tenderness along the inferior rib cage as above. The abdomen is otherwise nontender. PELVIC EXAM: Normal external genitalia with minimal atrophy. Cervix and vagina appear normal with mild atrophy. The cervix appears somewhat stenotic and is somewhat flat to the posterior vaginal wall consistent with her previous conization. There is no unusual discharge. There is no evidence of prolapse. The uterus is midposition, nongravid size and nontender. There are no palpable adnexal masses or tenderness. Bimanual examination is somewhat limited secondary to her size. RECTAL EXAM: Rectovaginal exam is negative for mass or tenderness and is negative for occult blood. EXTREMITIES: Nontender. IMPRESSION: 1. 54-year-old menopausal female with unremarkable gynecologic exam. 2. Previous low-grade OSEAS Pap smear with negative high-risk HPV testing one year ago. PLAN: 1. Pap smear with high-risk HPV testing was obtained. She understands that if low-grade changes are greater, she will be referred for colposcopic examination. 2. Self breast awareness was discussed with the patient. 3. Screening Mammogram will be done today. 4. Osteoporosis prevention was discussed. I have stressed the importance of adequate calcium, vitamin D and regular exercise. Recommended amounts of calcium and vitamin D were also discussed. 5. She was advised to return in one year for her annual well woman exam.
== END | disposition home or self-care (01) ==
LOC: WWCWWP 10:33
PROVIDERS: ATTEND Obstetrics & Gynecology
DX: Z53.9 Procedure and treatment not carried out, unspecified reason (principal)

== ENCOUNTER → 2020-08-19 | Outpatient (CLI) | payer MEDICAID | END | disposition home or self-care (01) | LOC: LABWHC1 15:25 | PROVIDERS: ATTEND Neurological Surgery | DX: Z01.812 Encounter for preprocedural laboratory examination (principal) | CPT/HCPCS: 87070 ==

== ENCOUNTER → 2020-10-12 | Outpatient (CLI) | payer MEDICAID | END | disposition home or self-care (01) | LOC: RADMRIMAIN 21:26 | PROVIDERS: ATTEND Neurological Surgery | DX: Z53.9 Procedure and treatment not carried out, unspecified reason (principal) ==

== ENCOUNTER → 2020-11-15 | Outpatient (CLI) | payer MEDICAID ==
[2020-11-15 11:14] LABS: MCH 27.9 pg (25.0-35.0); MCHC 32.6 g/dL (31.0-37.0); MCV 85.6 fL (80.0-100.0); Mean Platelet Volume 7.6; Platelet Count 317 k/uL (150-450); RBC 5.03 m/uL (3.80-5.40); RDW 14.2 % (11.5-15.5); WBC 7.9 k/uL (3.8-10.6)
[2020-11-15 14:56] LABS: African American GFR (CKD) 94.9 (60.0-200.0); Albumin 4.7 g/dL (3.80-4.90); Albumin/Globulin Ratio 1.81 (1.60-3.17); Anion Gap 10.1 mmol/L (4.00-12.00); BUN/Creat Ratio 16.25 Ratio (12.00-20.00); Calcium 9.9 mg/dL (8.7-10.3); Carbon Dioxide 27.9 mmol/L (21.6-31.8); Chol/HDL Ratio 3.76; Globulin 2.6 g/dL (1.6-3.3); Non-African American GFR(CKD) 81.8 (60.0-200.0); Potassium 3.9 mmol/L (3.5-5.5); Total Bilirubin 1.2 mg/dL (0.3-1.2); Total Protein 7.3 g/dL (6.2-8.2)
== END | disposition home or self-care (01) ==
LOC: LABWHC1 10:23
PROVIDERS: ATTEND Family Medicine
DX: I10 Essential (primary) hypertension (principal); G95.0 Syringomyelia and syringobulbia; F41.9 Anxiety disorder, unspecified; K21.9 Gastro-esophageal reflux disease without esophagitis
CPT/HCPCS: 36415; 80053; 80061; 84443; 85027

== ENCOUNTER → 2020-12-07 | Outpatient (CLI) | payer BC, MEDICAID ==
[2020-12-07 08:09] VITALS: BP 158/92; PULSE 96; RESP 18
--- NOTE | 2020-12-07 09:27 | P.PAINCN ---
History of Present Illness - Reason for Consult Consult date: 12/07/20 - History of Present Illness Britney is a 55-year-old female presenting today as an initial consult. She presents with a chief complaint of pain all over her body. She feels that she's had this pain for many years. She has pain in her shoulders, chest, back, legs, hips. She described that these pains are chronic in nature and cause pain with mild palpation. Any touch causes her pain. She reports that she has swelling in her lower extremities as of recently she's been started on a water pill which has improved the swelling. She had pain in her feet which were attributed to the swelling and have resolved since then. She has chronic low back pain which she describes as a aching sensation in the middle of the low back without any significant radiation to legs. She reports that her legs are weak in the thighs with activity. She also has recently had anterior cervical fusion between C5 and C6 about 3 months ago. She has not begun physical therapy since then. She still has some numbness in her right hand. The thoracic spine MRI shows a syrinx between T5 and T11 largest being at about T9. MRI of the cervical spine shows small disc bulge at C5 6 causing mild central stenosis. Review of Systems Negative except as noted in the HPI Past Medical History Past Medical History: GERD/Reflux, Hypertension, Osteoarthritis (OA) Additional Past Medical History / Comment(s): Irregular heartbeat. Environmental Allergies. States Pain RUQ ABD, UNDER RIBS. Chronic back problems. Degenerative disc disease. 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 She had a CKC for high-grade cervical dysplasia years ago. History of Any Multi-Drug Resistant Organisms: None Reported Past Surgical History: Cholecystectomy, Orthopedic Surgery Additional Past Surgical History / Comment(s): Conization of the cervix in the past. Colonoscopy, CERVICAL FUSION Past Anesthesia/Blood Transfusion Reactions: Motion Sickness Smoking Status: Never smoker - Past Family History Father Family Medical History: Cancer, CVA/TIA, Myocardial Infarction ([place]) Additional Family Medical History / Comment(s): prostate cancer Mother Family Medical History: Congestive Heart Failure (CHF), Diabetes Mellitus, Hypertension Daughter(s) Family Medical History: Cancer Additional Family Medical History / Comment(s): low grade non hodgkins lymphoma of her gums Medications and Allergies Home Medications Medication Instructions Recorded Confirmed Type Loratadine 10 mg PO QAM 07/29/18 12/07/20 History Metoprolol Succinate (ER) [Toprol 25 mg PO HS 07/29/18 12/07/20 History Xl] Omeprazole 40 mg PO QAM 07/29/18 12/07/20 History Cholecalciferol [Vitamin D3 (25 1,000 unit PO DAILY 07/26/20 12/07/20 History Mcg = 1000 Iu)] Etodolac [Lodine] 400 mg PO BID 07/26/20 12/07/20 History Losartan [Cozaar] 50 mg PO DAILY 07/26/20 12/07/20 History Gabapentin 600 mg PO BID 11/30/20 12/07/20 History Latanoprost/Pf [Latanoprost 0.005% 1 drop BOTH EYES HS 11/30/20 12/07/20 History Eye Drop] hydroCHLOROthiazide [Hydrodiuril] 25 mg PO DAILY 11/30/20 12/07/20 History Allergies Allergy/AdvReac Type Severity Reaction Status Date / Time codeine Allergy Severe SEVERE Verified 11/30/20 10:31 NAUSEA Sulfa (Sulfonamide Allergy Severe Rash/Hives, Verified 11/30/20 10:31 Antibiotics) SEVER HEADACHE, COULDN'T TALK OR SEE. adhesive Allergy Unknown RED BUMPS, Verified 11/30/20 10:31 SKIN IRRITATION citalopram hydrobromide Allergy HEAD FELT Verified 11/30/20 10:31 [From Celexa] NUMB, DID NOT FEEL WELL. sertraline [From Zoloft] AdvReac Unknown HEAD FELT Verified 11/30/20 10:31 NUMB Physical Exam General: Awake and alert oriented 3 no distress, obese Respiratory exam: No audible wheezing no accessory muscle usage Cardiovascular exam: regular rate, palpable bilateral pulses, no lower extremity edema Abdominal exam: No distention nontender to palpation, obese Cervical spine: Normal alignment, Spurling's negative, facet loading negative, Process Developer strength is 5/5, pacheco negative Lumbar spine: There is an obese midline, there is loss of lordosis. There is tenderness to palpation throughout the lumbar spine and thoracic spine. She has good flexion of the foot lumbar spine. Extension is limited to about -5. Right and left lateral sidebending is limited. Lower extremity strength is normal bilaterally. Sacroiliac joints: Nontender to palpation, BOLA is negative, Ga[place]elon negative Neuro exam: Her sensation is preserved bilaterally upper and lower extremities. Her deep tendon reflexes in the upper extremity are 1+ at the right brachial radialis, 2+ in the left upper extremity. Deep tendon reflexes lower extremity are 2+ bilaterally. She is able stand on her toes and her heels. Psych exam: Cooperative, appropriate mood Assessment and Plan Assessment: #1 cervical degenerative disc disease #2 thoracic syrinx #3 cervical radiculopathy #4 lumbar spondylosis without myelopathy Plan: The medical decision making today was based around the review of the records and examination of the patient. I discussed the patient I believe she has some organic causes for pain. I also believe that some of her pain is caused by her weight and likely a chronic inflammatory process. We discussed dietary changes to improve her overall health. Having significant tenderness to palpation throughout the body is concerning for chronic inflammatory disease. I do not believe this is organic or related to the spine. We discussed dietary changes in detail. I also discussed that we could potentially try lumbar epidural she still having shooting pain down the leg. We have also offer to increase her gabapentin, she wants to continue at the current dose of 600 mg twice a day. I've given her prescription for physical therapy for the lumbar spine and she has a prescription for cervical spondylitic therapy from her surgeon. She can follow up as needed moving forward I have spent 50 minutes on patient care today. The time was used to review the medical records, review of the available imaging, evaluation and examination of the patient, coordination of care with the medical staff and if applicable referring physicians, as well as creation of the medical record. PQRS Measure Charge Sheet Measure #130: Documentation of Current Meds in Medical Chart: Patient's medications documented in chart PQRS Narrative: Smoking Status Former smoker Pain Intensity [Lower Back] 4 Scale Used Numeric (1 - 10) Hx Alcohol Use (MH) Yes Home Medications: Ambulatory Orders Loratadine 10 mg PO QAM 07/29/18 Metoprolol Succinate (ER) [Toprol Xl] 25 mg PO HS 07/29/18 Omeprazole 40 mg PO QAM 07/29/18 Cholecalciferol [Vitamin D3 (25 Mcg = 1000 Iu)] 1,000 unit PO DAILY 07/26/20 Etodolac [Lodine] 400 mg PO BID 07/26/20 Losartan [Cozaar] 50 mg PO DAILY 07/26/20 Gabapentin 600 mg PO BID 11/30/20 Latanoprost/Pf [Latanoprost 0.005% Eye Drop] 1 drop BOTH EYES HS 11/30/20 hydroCHLOROthiazide [Hydrodiuril] 25 mg PO DAILY 11/30/20
== END | disposition home or self-care (01) ==
LOC: PNWHC3 07:36
PROVIDERS: ATTEND Hospitalist
DX: M50.30 Other cervical disc degeneration, unspecified cervical region (principal); M54.12 Radiculopathy, cervical region; M47.816 Spondylosis without myelopathy or radiculopathy, lumbar region; G95.0 Syringomyelia and syringobulbia; K21.9 Gastro-esophageal reflux disease without esophagitis; I10 Essential (primary) hypertension; Z79.899 Other long term (current) drug therapy; Z88.5 Allergy status to narcotic agent; Z91.048 Other nonmedicinal substance allergy status; Z79.1 Long term (current) use of non-steroidal anti-inflammatories (NSAID)
CPT/HCPCS: 99211

== ENCOUNTER → 2021-02-02 | Outpatient (CLI) | payer BC ==
--- NOTE | 2021-02-06 09:10 | MM ---
Reason for exam: screening (asymptomatic). Last mammogram was performed 1 year and 8 months ago. History: Patient history of other cancer. Benign US left guided VAD of the left breast, December 13, 2008. Benign core biopsy of the right breast, December 17, 2006. Took hormonal contraceptives beginning at age 16. Physical Findings: A clinical breast exam by your physician is recommended on an annual basis and results should be correlated with mammographic findings. MG Screening Mammo w CAD Bilateral CC and MLO view(s) were taken. Prior study comparison: June 09, 2019, bilateral MG 3d screening mammo w/cad. March 18, 2018, bilateral MG 3d screening mammo w/cad. The breast tissue is heterogeneously dense. This may lower the sensitivity of mammography. Previous mammotome biopsy in the left breast with associated nodularity. Possible distortion and nodularity central right CC view anterior to middle depth. ASSESSMENT: Incomplete: need additional imaging evaluation, BI-RAD 0 RECOMMENDATION: Special view mammogram of the right breast. (3D) If lesion persists on supplemental views, image directed ultrasound is recommended. [facility] will attempt to contact patient to return for supplemental views and ultrasound if indicated.
== END | disposition home or self-care (01) ==
LOC: RADMAMWWP 12:38
PROVIDERS: ATTEND Obstetrics & Gynecology
DX: Z12.31 Encounter for screening mammogram for malignant neoplasm of breast (principal)
CPT/HCPCS: 77067

== ENCOUNTER → 2021-02-07 | Outpatient (CLI) | payer BC ==
--- NOTE | 2021-02-07 13:49 | MM ---
Reason for exam: additional evaluation requested from abnormal screening. Last mammogram was performed less than 1 month ago. History: Patient is postmenopausal and history of other cancer. Benign US left guided VAD of the left breast, December 13, 2008. Benign core biopsy of the right breast, December 17, 2006. Took hormonal contraceptives beginning at age 16. Physical Findings: Nurse did not find any significant physical abnormalities on exam. MG Work Up Mamm w CAD RT Spot compression CC, spot compression MLO, and LM view(s) were taken of the right breast. Prior study comparison: February 02, 2021, bilateral MG screening mammo w CAD. June 09, 2019, bilateral MG 3d screening mammo w/cad. The breast tissue is heterogeneously dense. This may lower the sensitivity of mammography. The 11-12 o'clock asymmetric density becomes less defined on spot views. Ultrasound recommended. These results were verbally communicated with the patient and result sheet given to the patient on 02/07/21. ASSESSMENT: Incomplete: need additional imaging evaluation, BI-RAD 0 RECOMMENDATION: Ultrasound of the right breast. (11-12 o'clock)
--- NOTE | 2021-02-07 13:51 | USB ---
Reason for exam: additional evaluation requested from abnormal screening. History: Patient is postmenopausal and history of other cancer. Benign US left guided VAD of the left breast, December 13, 2008. Benign core biopsy of the right breast, December 17, 2006. Took hormonal contraceptives beginning at age 16. US Breast Workup Limited RT Right limited breast ultrasound including focal area of concern, retroareolar and axilla demonstrates a 4 x 2 x 3mm oval, cystic lesion at 11 o'clock and a 7 x 5 x 7mm lobular, cystic cluster at 12 o'clock. Scanned 9-12 o'clock. These results were verbally communicated with the patient and result sheet given to the patient on 02/07/21. ASSESSMENT: Probably benign, BI-RAD 3 RECOMMENDATION: Follow-up diagnostic mammogram of the right breast in 6 months.
== END | disposition home or self-care (01) ==
LOC: RADMAMWWP 09:44
PROVIDERS: ATTEND Obstetrics & Gynecology
DX: Z78.0 Asymptomatic menopausal state (principal)
CPT/HCPCS: 77065

== ENCOUNTER → 2021-02-23 | Outpatient (CLI) | payer BC ==
[2021-02-23 18:21] LABS: African American GFR (CKD) >90 (>60 ml/min/1.73 sqM); Blood Urea Nitrogen 13 mg/dL (7-17); Non-African American GFR(CKD) 82 (>60 ml/min/1.73 sqM)
--- NOTE | 2021-02-24 08:38 | CT ---
EXAMINATION TYPE: CT chest w con DATE OF EXAM: 02/23/2021 COMPARISON: None HISTORY: Pain in thoracic spine. CT DLP: 632 mGycm Automated exposure control for dose reduction was used. TECHNIQUE: CT scan of the chest is performed with IV Contrast, patient injected with 100 mL of Isovue 300. MIP Images are created on CT scanner and reviewed. 3D reconstructed images are created on an independent workstation and reviewed. FINDINGS: LUNGS: There is a 4 mm nodule in the right upper lobe image #22. There is a 5 mm nodule superior segm ent left lower lobe image #25 there is a 4 mm nodule right upper lobe image 31. No pleural effusion o r pneumothorax. No focal pneumonia. MEDIASTINUM: There are no greater than 1 cm hilar or mediastinal lymph nodes. No pericardial effusi on is seen. OTHER: Postcholecystectomy changes are seen. Low-attenuation liver suggestive of fatty infiltration. Small hiatal hernia noted. Hypertrophic and degenerative changes spine. Sclerotic density involving the mid to lower thoracic segment likely related to bone. IMPRESSION: 1. There are multiple 5 mm or less pulmonary nodules too small to characterize. Recommend 6 month fol low-up to confirm stability. 2. No evidence of acute intrathoracic process. 3. Fatty infiltration of the liver for postcholecystectomy
== END | disposition home or self-care (01) ==
LOC: RADCTMAIN 17:00
PROVIDERS: ATTEND Family Medicine
DX: R91.8 Other nonspecific abnormal finding of lung field (principal); K76.0 Fatty (change of) liver, not elsewhere classified
CPT/HCPCS: 82565; 84520; 71260; 36415; Q9967

== ENCOUNTER → 2021-04-18 | Outpatient (CLI) | payer BC ==
--- NOTE | 2021-04-18 13:04 | XR ---
Bilateral knees HISTORY: [id number] MARIA INES KNEE PAIN 3 views of each knee are submitted. Bone mineralization, joint spaces and alignment are maintained except for some joint space loss in th e medial compartments, greater than right. There is some spurring at the patellofemoral joints. Diffi cult to exclude minimal joint effusions. IMPRESSION: osteoarthritis
== END | disposition home or self-care (01) ==
LOC: RADXRYALE 11:31
PROVIDERS: ATTEND Family Medicine
DX: M17.0 Bilateral primary osteoarthritis of knee (principal)

== ENCOUNTER → 2021-05-04 | Outpatient (CLI) | payer BC | END | disposition home or self-care (01) ==

== ENCOUNTER → 2021-08-02 | Outpatient (CLI) | payer BC ==
[2021-08-02 08:13] VITALS: BP 135/81; PULSE 78; RESP 16; TEMP 98.4
--- NOTE | 2021-08-02 09:05 | P.HPOB ---
History of Present Illness H&P Date: 08/02/21 Chief Complaint: The patient is here for her routine gynecologic exam. This is a 55-year-old with an LMP of July 2020. Her Pap smear in 2018 showed low-grade OSEAS with negative high-risk HPV testing. Co-testing was performed on 07/26/2020 which showed ASCUS and negative high-risk HPV testing. At that time colposcopy was recommended, but the patient refused the colposcopy because of her upcoming neck surgery. We decided to repeat the Pap smear cotest in 12 months. This will be repeated today. She is without gynecologic complaints and denies any vaginal bleeding for the past 12 months. She does have hot flashes and always seems to feel warm even with minimal activity. Review of Systems She has lost about 3 pounds over the past year. She denies respiratory or cardiac problems. GI: She has been passing gas more frequently. Musculoskeletal: She has been having the problems and is seeing somebody for this. Past Medical History Past Medical History: GERD/Reflux, Hypertension, Osteoarthritis (OA) Additional Past Medical History / Comment(s): Irregular heartbeat. Environmental Allergies. 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 Chronic back problems. Degenerative disc disease. 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 She had a CKC for high-grade cervical dysplasia years ago. History of Any Multi-Drug Resistant Organisms: None Reported Past Surgical History: Cholecystectomy, Orthopedic Surgery Additional Past Surgical History / Comment(s): Conization of the cervix in the past. Colonoscopy, CERVICAL FUSION Past Anesthesia/Blood Transfusion Reactions: Motion Sickness Past Psychological History: No Psychological Hx Reported Smoking Status: Former smoker Past Alcohol Use History: Occasional (2 per month) Additional Past Alcohol Use History / Comment(s): Previous social smoker and she has quit. Past Drug Use History: None Reported Additional History: She is . She is not seeing anybody this time. She is disabled. - Past Family History Father Family Medical History: Cancer, CVA/TIA, Myocardial Infarction ([place]) Additional Family Medical History / Comment(s): prostate cancer Mother Family Medical History: Congestive Heart Failure (CHF), Diabetes Mellitus, Hypertension Daughter(s) Family Medical History: Cancer Additional Family Medical History / Comment(s): low grade non hodgkins lymphoma of her gums Medications and Allergies Home Medications Medication Instructions Recorded Confirmed Type Loratadine 10 mg PO QAM 07/29/18 08/02/21 History Metoprolol Succinate (ER) [Toprol 25 mg PO HS 07/29/18 08/02/21 History Xl] Omeprazole 40 mg PO QAM 07/29/18 08/02/21 History Cholecalciferol [Vitamin D3 (25 1,000 unit PO DAILY 07/26/20 08/02/21 History Mcg = 1000 Iu)] Losartan [Cozaar] 50 mg PO DAILY 07/26/20 08/02/21 History Gabapentin 600 mg PO BID 11/30/20 08/02/21 History Latanoprost/Pf [Latanoprost 0.005% 1 drop BOTH EYES HS 11/30/20 08/02/21 History Eye Drop] hydroCHLOROthiazide [Hydrodiuril] 25 mg PO DAILY 11/30/20 08/02/21 History Cyclobenzaprine [Flexeril] 10 mg PO TID PRN 08/02/21 08/02/21 History DULoxetine HCL [Cymbalta] 30 mg PO BID 08/02/21 08/02/21 History predniSONE 10 mg PO DAILY 08/02/21 08/02/21 History Allergies Allergy/AdvReac Type Severity Reaction Status Date / Time codeine Allergy Severe SEVERE Verified 08/02/21 08:07 NAUSEA Sulfa (Sulfonamide Allergy Severe Rash/Hives, Verified 08/02/21 08:07 Antibiotics) SEVER HEADACHE, COULDN'T TALK OR SEE. adhesive Allergy Unknown RED BUMPS, Verified 08/02/21 08:07 SKIN IRRITATION citalopram hydrobromide Allergy HEAD FELT Verified 08/02/21 08:07 [From Celexa] NUMB, DID NOT FEEL WELL. sertraline [From Zoloft] AdvReac Unknown HEAD FELT Verified 08/02/21 08:07 NUMB Exam Vital Signs Temp Pulse Resp BP Pulse Ox 08/02/21 08:08 98.4 F 78 16 135/81 98 Intake and Output 08/01/21 08/02/21 08/02/21 22:59 06:59 14:59 Other: Weight 118.388 kg Height 5 feet 7 inches, weight 261 pounds, BMI 40.9. This is a well-developed well-nourished heavyset white female who is alert and oriented times 3 in no acute distress. HEENT: Within normal limits. NECK: Supple without mass or thyromegaly. CHEST AND LUNGS: Clear to auscultation. HEART: Regular rate and rhythm. BREASTS: Are without mass or discharge. AXILLARY EXAM: Negative for adenopathy. BACK: Negative for CVA tenderness. ABDOMEN: Soft, obese, nontender, without palpable masses. PELVIC EXAM: Normal external genitalia with mild atrophy. Cervix is consistent with her previous cold knife conization. The cervix is fairly flush with the back of the vagina and is somewhat stenotic. There are no cervical lesions. Cervix and vagina reveal mild atrophy. There is no unusual discharge. There is no evidence of prolapse. The uterus is midposition, nongravid size and nontender. There are no palpable adnexal masses or tenderness. Bimanual examination is somewhat limited secondary to her size. RECTAL EXAM: Rectovaginal exam is negative for mass or tenderness and is negative for occult blood. EXTREMITIES: Nontender. IMPRESSION: 1. 55-year-old menopausal female with normal gynecologic exam. 2. Previous abnormal Pap smears showing low-grade OSEAS in 2019 and ASCUS in 2019, both with negative high-risk HPV testing. The patient had refused colposcopic examination last year for personal reasons. PLAN: 1. Pap smear cotest was performed. We will take into account her 2 previous mammograms in determining whether colposcopy is indicated after this testing. 2. Self breast awareness was discussed with the patient. We have also discussed symptoms associated with inflammatory breast cancer. 3. Right diagnostic mammogram is scheduled for 08/11/2021. She had a bilateral mammogram with right breast workup about 6 months ago and 6 month follow-up was recommended. The order slip was given to the patient for the 6 month follow-up. 4. Osteoporosis prevention was discussed. I have stressed the importance of adequate calcium, vitamin D and regular exercise. Recommended amounts of calcium and vitamin D were also discussed. 5. She has completed her Covid vaccination series. 6. She was advised to return in one year for her annual well woman exam.
== END ==
LOC: WWCWWP 07:51
PROVIDERS: ATTEND Obstetrics & Gynecology
DX: Z01.419 Encounter for gynecological examination (general) (routine) without abnormal findings (principal); I10 Essential (primary) hypertension; M19.90 Unspecified osteoarthritis, unspecified site; R87.612 Low grade squamous intraepithelial lesion on cytologic smear of cervix (LGSIL); K21.9 Gastro-esophageal reflux disease without esophagitis; Z79.899 Other long term (current) drug therapy; Z87.891 Personal history of nicotine dependence; Z88.2 Allergy status to sulfonamides; Z88.5 Allergy status to narcotic agent; Z88.8 Allergy status to other drugs, medicaments and biological substances; Z91.048 Other nonmedicinal substance allergy status

== ENCOUNTER → 2021-08-10 | Outpatient (CLI) | payer BC ==
--- NOTE | 2021-08-10 09:42 | CT ---
EXAMINATION TYPE: CT chest w con DATE OF EXAM: 08/10/2021 COMPARISON: 02/23/2021 HISTORY: SPN CT DLP: 534.90 mGycm, Automated exposure control for dose reduction was used. CONTRAST: Performed injected with 100 ml mL of Isovue 300. TECHNIQUE: Axial images were obtained at 5 mm thick sections. Reconstructed images are reviewed on [employer] computer in the coronal plane. FINDINGS: Portion of the thyroid visualized is normal. There is a 0.7 cm nodule within the periphery of the right anterior lateral lung base. Series 4 image 27. This was previously 0.5 cm. A 0.4 cm nodules in the periphery of the right mid lung. Series 4 image 20. This has enlarged from co mparison. No enlarged mediastinal or hilar adenopathy is evident. The ascending aorta diameter at the level o f the main pulmonary artery is 3.6 cm. The main pulmonary artery diameter at the bifurcation is 2.[address] sections are obtained through the upper abdomen. There is mild fatty infiltration of the l iver. IMPRESSIONS: 1. Two enlarging nodules within the right lung. PET/CT is recommended for additional workup.
== END | disposition home or self-care (01) ==
LOC: RADCTMAIN 08:03
PROVIDERS: ATTEND Family Medicine
DX: R91.8 Other nonspecific abnormal finding of lung field (principal)
CPT/HCPCS: 71260; Q9967

== ENCOUNTER → 2021-08-11 | Outpatient (CLI) | payer BC ==
--- NOTE | 2021-08-11 11:09 | MM ---
Reason for exam: follow-up at short interval from prior study. Last mammogram was performed 6 months ago. History: Patient is postmenopausal and history of other cancer. Benign US left guided VAD of the left breast, December 13, 2008. Benign core biopsy of the right breast, December 17, 2006. Took hormonal contraceptives beginning at age 16. Physical Findings: Nurse did not find any significant physical abnormalities on exam. MG Diagnostic Mammo RT w CAD CC and MLO view(s) were taken of the right breast. Prior study comparison: February 02, 2021, bilateral MG screening mammo w CAD. June 09, 2019, bilateral MG 3d screening mammo w/cad. The breast tissue is heterogeneously dense. This may lower the sensitivity of mammography. There are benign appearing round vascular calcifications in the right breast. There is no discrete abnormality. ASSESSMENT: Benign, BI-RAD 2 RECOMMENDATION: Return to routine screening mammogram schedule for both breasts. Back on schedule.
== END | disposition home or self-care (01) ==
LOC: RADMAMWWP 10:15
PROVIDERS: ATTEND Obstetrics & Gynecology
DX: R91.1 Solitary pulmonary nodule (principal); Z85.89 Personal history of malignant neoplasm of other organs and systems; Z78.0 Asymptomatic menopausal state
CPT/HCPCS: 77065

== ENCOUNTER → 2021-12-21 | Outpatient (CLI) | payer OTHER ==
[2021-12-21 14:50] LABS: HCT 42.2 % (37.2-46.3); HGB 13.4 g/dL (12.0-15.0); MCH 27.7 pg (27.0-32.0); MCHC 31.8 g/dL (32.0-37.0); MCV 87.4 fL (80.0-97.0); Mean Platelet Volume 10.9 fL (9.5-12.2); NRBC Per 100 WBC 0 /100 WBCS (0.0-0.0); Platelet Count 286 X 10*3/uL (140-440); RBC 4.83 X 10*6/uL (4.10-5.20); RDW 13.7 % (11.5-14.5); WBC 6.66 X 10*3/uL (4.50-10.00)
[2021-12-21 16:28] LABS: ALT 94 U/L (8-44); AST 57 U/L (13-35); African American GFR (CKD) 110.7 (60.0-200.0); Albumin 4.3 g/dL (3.8-4.9); Albumin/Globulin Ratio 1.43 (1.60-3.17); Alkaline Phosphatase 108 U/L (41-126); BUN/Creat Ratio 21.71 Ratio (12.00-20.00); Blood Urea Nitrogen 15.2 mg/dL (9.0-27.0); Calcium 9.6 mg/dL (8.7-10.3); Carbon Dioxide 24.8 mmol/L (20.0-27.5); Chloride 100 mmol/L (96-109); Chol/HDL Ratio 4.09 Ratio; Glucose 161 mg/dL (70-110); Non-African American GFR(CKD) 95.5 (60.0-200.0); Potassium 3.8 mmol/L (3.5-5.5); Sodium 139 mmol/L (135-145); Total Protein 7.3 g/dL (6.2-8.2)
== END | disposition home or self-care (01) ==
LOC: LABWHC1 10:14
PROVIDERS: ATTEND Family Medicine
DX: I10 Essential (primary) hypertension (principal); K21.9 Gastro-esophageal reflux disease without esophagitis; F41.9 Anxiety disorder, unspecified; G95.0 Syringomyelia and syringobulbia
CPT/HCPCS: 36415; 80053; 80061; 82306; 84443; 85027

== ENCOUNTER → 2022-05-24 | Outpatient (CLI) | payer OTHER | LOC: DBWHC3 08:50 | PROVIDERS: ATTEND Family Medicine | DX: E11.65 Type 2 diabetes mellitus with hyperglycemia (principal); Z87.891 Personal history of nicotine dependence; Z88.5 Allergy status to narcotic agent; Z88.2 Allergy status to sulfonamides; Z91.048 Other nonmedicinal substance allergy status; Z88.8 Allergy status to other drugs, medicaments and biological substances | CPT/HCPCS: G0108 ×2 ==

== ENCOUNTER → 2022-06-05 | Outpatient (CLI) | payer OTHER ==
--- NOTE | 2022-06-06 08:48 | MM ---
Reason for Exam: Screening (asymptomatic). Last mammogram was performed 1 year(s) and 4 month(s) ago. Patient History: Menarche at age 11. First Full-Term at age 18. Postmenopausal. Patient has history of breast feeding. Hormonal Contraceptives, from age 16 until age 52. 12/17/2006, Benign Core Biopsy on the right side. 12/13/2008, Benign Core Biopsy on the left side. Risk Values: Philomena 5 year model risk: 1.8%. NCI Lifetime model risk: 10.2%. Prior Study Comparison: 02/02/2021 Bilateral Screening Mammogram, [facility]. 02/07/2021 Right Diagnostic Mammogram, [facility]. 08/11/2021 Right Diagnostic Mammogram, [facility]. Tissue Density: The breast tissue is heterogeneously dense. This may lower the sensitivity of mammography. Findings: Analyzed By CAD. There is no suspicious group of microcalcifications or new suspicious mass in either breast. Benign-appearing bilateral calcifications. Biopsy clip demonstrated in the left breast. No significant change from prior exam. Overall Assessment: Benign, BI-RAD 2 Management: Screening Mammogram of both breasts in 1 year. A clinical breast exam by your physician is recommended on an annual basis and results should be correlated with mammographic findings. Electronically signed and approved by: Rohith Rodas D.O.
== END | disposition home or self-care (01) ==
LOC: RADMAMWWP 14:36
PROVIDERS: ATTEND Obstetrics & Gynecology
DX: Z12.31 Encounter for screening mammogram for malignant neoplasm of breast (principal); R92.1 Mammographic calcification found on diagnostic imaging of breast; Z78.0 Asymptomatic menopausal state
CPT/HCPCS: 77067

== ENCOUNTER → 2022-07-05 | Outpatient (CLI) | payer OTHER ==
--- NOTE | 2022-07-05 14:41 | US ---
EXAMINATION TYPE: US abdomen limited DATE OF EXAM: 07/05/2022 COMPARISON: None CLINICAL HISTORY: 56-year-old female R74.01 ELEVATION OF LEVELS OF LIVER TRANSAMINASE L. ASHLEY per ord er. Hx cholecystectomy. TECHNIQUE: Multiple sonographic images of the right upper quadrant are obtained. FINDINGS: EXAM MEASUREMENTS: Liver Length: 24.0 cm CBD: 0.40 cm Right Kidney: 13.1 x 6.2 x 4.1 cm HAND HEEL SEAT FITTER NOTES: Exam is very limited due to gas. Pancreas: Tail was not well seen due to bowel gas shadowing. Liver: Appears very heterogeneous and enlarged. Increased attenuation. Limited measurement. Gallbladder: Surgically absent. Evidence for sonographic Fontaine's sign: No CBD: Appears wnl Right Kidney: No hydronephrosis or masses seen IMPRESSION: 1. Hepatomegaly (24.0 cm) with severe hepatic steatosis. 2. Status post cholecystectomy. No biliary ductal dilatation.
== END | disposition home or self-care (01) ==
LOC: RADUSWWP 06:52
PROVIDERS: ATTEND Family Medicine
DX: K76.0 Fatty (change of) liver, not elsewhere classified (principal); R16.0 Hepatomegaly, not elsewhere classified; Z90.49 Acquired absence of other specified parts of digestive tract
CPT/HCPCS: 76705

== ENCOUNTER → 2022-08-07 | Outpatient (CLI) | payer OTHER ==
[2022-08-07 12:55] VITALS: BP 115/76; PULSE 80; RESP 17; TEMP 98.4
--- NOTE | 2022-08-07 13:34 | P.HPOB ---
History of Present Illness H&P Date: 08/07/22 Chief Complaint: The patient is here for her routine gynecologic exam. This is a 56-year-old with an LMP of July 2020. The patient is without gynecologic complaints and denies any postmenopausal bleeding. Her last Pap smear on 08/02/2021 showed low-grade OSEAS with negative high-risk HPV testing. The Pap smear prior to that was on 07/26/2028 which showed ASCUS and negative high-risk HPV testing. Review of Systems She has lost about 4 pounds over the past year. She denies respiratory or cardiac problems. GI: She has been very gassy and passes lots of flatus. She denies feeling bloated. She does have fairly frequent bowel movements, and occasionally will have loose stools. She states she has been followed for an enlarged liver which has shown up on CAT scan. Past Medical History Past Medical History: Diabetes Mellitus, GERD/Reflux, Hypertension, Osteoarthritis (OA) Additional Past Medical History / Comment(s): Irregular heartbeat. Environmental Allergies. 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 Chronic back problems. Degenerative disc disease. Enlarged liver. 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 She had a CKC for high-grade cervical dysplasia 2001. History of Any Multi-Drug Resistant Organisms: None Reported Past Surgical History: Cholecystectomy, Orthopedic Surgery Additional Past Surgical History / Comment(s): Conization of the cervix 2001. Colonoscopy, CERVICAL FUSION Past Anesthesia/Blood Transfusion Reactions: Motion Sickness Past Psychological History: No Psychological Hx Reported Smoking Status: Former smoker Past Alcohol Use History: Occasional (1 or 2 every other week.) Additional Past Alcohol Use History / Comment(s): Previous social smoker and she has quit. Past Drug Use History: None Reported Additional History: She is and has not seen anybody at this time. She is disabled. - Past Family History Father Family Medical History: Cancer, CVA/TIA, Myocardial Infarction ([place]) Additional Family Medical History / Comment(s): prostate cancer Mother Family Medical History: Congestive Heart Failure (CHF), Diabetes Mellitus, Hypertension Daughter(s) Family Medical History: Cancer Additional Family Medical History / Comment(s): low grade non hodgkins lymphoma of her gums Brother(s) Family Medical History: Cancer Additional Family Medical History / Comment(s): Skin cancer on the nose. Sister(s) Additional Family Medical History / Comment(s): Some form of arthritis. Medications and Allergies Home Medications Medication Instructions Recorded Confirmed Type Loratadine 10 mg PO QAM 07/29/18 08/07/22 History Metoprolol Succinate (ER) [Toprol 25 mg PO HS 07/29/18 08/07/22 History Xl] Omeprazole 40 mg PO QAM 07/29/18 08/07/22 History Cholecalciferol [Vitamin D3 (25 1,000 unit PO DAILY 07/26/20 08/07/22 History Mcg = 1000 Iu)] Losartan [Cozaar] 50 mg PO DAILY 07/26/20 08/07/22 History Gabapentin 600 mg PO BID 11/30/20 08/07/22 History Latanoprost/Pf [Latanoprost 0.005% 1 drop BOTH EYES HS 11/30/20 08/07/22 History Eye Drop] hydroCHLOROthiazide [Hydrodiuril] 25 mg PO DAILY 11/30/20 08/07/22 History DULoxetine HCL [Cymbalta] 30 mg PO BID 08/02/21 08/07/22 History metFORMIN HCL [metFORMIN HCL ER 500 mg PO DAILY 05/24/22 08/07/22 History Osmotic] Meloxicam [Mobic] 7.5 mg PO Q12HR 08/07/22 08/07/22 History Rosuvastatin Calcium 10 mg PO DAILY 08/07/22 08/07/22 History Zinc Gluconate [Zinc] 50 mg PO DAILY 08/07/22 08/07/22 History Allergies Allergy/AdvReac Type Severity Reaction Status Date / Time codeine Allergy Severe SEVERE Verified 08/07/22 12:46 NAUSEA Sulfa (Sulfonamide Allergy Severe Rash/Hives, Verified 08/07/22 12:46 Antibiotics) SEVER HEADACHE, COULDN'T TALK OR SEE. adhesive Allergy Unknown RED BUMPS, Verified 08/07/22 12:46 SKIN IRRITATION citalopram hydrobromide Allergy HEAD FELT Verified 08/07/22 12:46 [From Celexa] NUMB, DID NOT FEEL WELL. sertraline [From Zoloft] AdvReac Unknown HEAD FELT Verified 08/07/22 12:46 NUMB EEG GEL Allergy Rash/Hives Uncoded 08/07/22 12:48 Exam Vital Signs Temp Pulse Resp BP Pulse Ox 08/07/22 12:52 98.4 F 80 17 115/76 98 Intake and Output 08/06/22 08/07/22 08/07/22 22:59 06:59 14:59 Other: Weight 116.573 kg Height 5 feet 6 inches, weight 257 pounds, BMI 41.5. This is a well-developed well-nourished heavyset white female who is alert and oriented times 3 in no acute distress. HEENT: Within normal limits. NECK: Supple without mass or thyromegaly. CHEST AND LUNGS: Clear to auscultation. HEART: Regular rate and rhythm. BREASTS: Are without mass or discharge. AXILLARY EXAM: Negative for adenopathy. BACK: Negative for CVA tenderness. ABDOMEN: Soft, mild right upper quadrant tenderness, without palpable masses. The patient states she has a known liver enlargement. She plans to see her GI doctor, Dr. Gross for this. PELVIC EXAM: Normal external genitalia with mild atrophy. Cervix and vagina appear normal with minimal atrophy. The cervix is somewhat stenotic possibly secondary to her previous conization of the cervix. There is no unusual discharge. There is no evidence of prolapse. The uterus is midposition, nongravid size and nontender. There are no palpable adnexal masses or tenderness. RECTAL EXAM: Rectovaginal exam is negative for mass or tenderness and is negative for occult blood. EXTREMITIES: Nontender. IMPRESSION: 1. 56-year-old menopausal female with normal gynecologic exam. 2. Previous low-grade OSEAS Pap smear with negative high-risk HPV testing one year ago. Her prior Pap smear showed ASCUS with negative high-risk HPV testing. 3. History of cold knife conization of the cervix in approximately 2001. PLAN: 1. Pap smear test was performed. 2. Self breast awareness was discussed with the patient. We have also discussed symptoms associated with inflammatory breast cancer. 3. Screening mammogram was done on 06/05/2022 and was benign. She will repeat this after 1 year. 4. Osteoporosis prevention was discussed. I have stressed the importance of adequate calcium, vitamin D and regular exercise. Recommended amounts of calcium and vitamin D were also discussed. 5. She was advised to return in one year for her annual well woman exam.
--- NOTE | 2022-08-14 16:25 | P.PN ---
Progress Note - Text Progress Note Date: 08/14/22 OUTPATIENT FOLLOW-UP NOTE TEST(S)/RESULTS: Test results from 08/07/2022 include negative Pap smear and negative high risk HPV testing. METHOD OF NOTIFICATION: The patient was notified by phone. PATIENT COMMENTS: The patient states she contacted the office that did her whole possibly and conization in the past and found out that she had been treated with a conization for high-grade dysplasia [place] [address] Fontaine. DIAGNOSIS: Negative Pap smear cotest. DISCUSSION: The patient's previous Pap smear on 08/02/2021 showed low-grade OSEAS with negative high-risk HPV testing. The one prior to that showed ASCUS with negative high-risk HPV testing. The [facility] management guidelines indicate retesting in one year is recommended. PLAN: She was advised to return in one year for her annual well woman exam. Pap smear cotest will be repeated at that time.
== END ==
LOC: WWCWWP 12:38
PROVIDERS: ATTEND Obstetrics & Gynecology
DX: Z01.419 Encounter for gynecological examination (general) (routine) without abnormal findings (principal); Z88.5 Allergy status to narcotic agent; Z88.2 Allergy status to sulfonamides; Z91.048 Other nonmedicinal substance allergy status; Z88.8 Allergy status to other drugs, medicaments and biological substances; Z88.6 Allergy status to analgesic agent; Z87.891 Personal history of nicotine dependence

== ENCOUNTER → 2022-09-18 | Outpatient (CLI) | payer OTHER ==
[2022-09-18 19:46] LABS: Protein, Total 7.6 g/dL (6.2-8.2)
[2022-09-18 19:53] LABS: Hepatitis B Surface Antigen Nonreactive (Nonreactive); Hepatitis C IgG Antibody Nonreactive (Nonreactive)
[2022-09-18 19:58] LABS: % Iron Saturation 17.82 (12.00-45.00); African American GFR (CKD) 93.5 (60.0-200.0); Albumin 4.9 g/dL (3.8-4.9); Albumin/Globulin Ratio 1.81 (1.60-3.17); Anion Gap 12.1 mmol/L (10.00-18.00); BUN/Creat Ratio 20.38 Ratio (12.00-20.00); Blood Urea Nitrogen 16.3 mg/dL (9.0-27.0); Calcium 10.1 mg/dL (8.7-10.3); Carbon Dioxide 27.9 mmol/L (20.0-27.5); Ferritin 76.6 ng/mL (10.0-291.0); Globulin 2.7 g/dL (1.6-3.3); Non-African American GFR(CKD) 80.7 (60.0-200.0); Potassium 3.6 mmol/L (3.5-5.5); Total Bilirubin 1.2 mg/dL (0.30-1.20); Total Protein 7.6 g/dL (6.2-8.2)
[2022-09-18 23:52] LABS: Basophils # (A) 0.04 X 10*3/uL (0.00-0.10); Basophils % (A) 0.5 %; Eosinophils # (A) 0.23 X 10*3/uL (0.04-0.35); Eosinophils % (A) 2.8 %; HCT 40.7 % (37.2-46.3); HGB 13.2 g/dL (12.0-15.0); Immature Grans, Automated 0.4 %; Lymphocytes # (A) 2.33 X 10*3/uL (0.90-5.00); Lymphocytes % (A) 28.8 %; MCH 28.8 pg (27.0-32.0); MCHC 32.4 g/dL (32.0-37.0); MCV 88.7 fL (80.0-97.0); Mean Platelet Volume 11.2 fL (9.5-12.2); Monocytes # (A) 0.33 X 10*3/uL (0.20-1.00); Monocytes % (A) 4.1 %; NRBC Per 100 WBC 0 /100 WBCS (0.0-0.0); Neutrophils # (A) 5.13 X 10*3/uL (1.80-7.70); Neutrophils % (A) 63.4 %; Platelet Count 303 X 10*3/uL (140-440); RBC 4.59 X 10*6/uL (4.10-5.20); RDW 14.3 % (11.5-14.5); WBC 8.09 X 10*3/uL (4.50-10.00)
[2022-09-19 11:45] LABS: Albumin 4.35 g/dL (3.80-4.90); Gamma Globulin 1.18 g/dL (0.70-1.50)
== END | disposition home or self-care (01) ==
LOC: LABWHC1 13:25
PROVIDERS: ATTEND Internal Medicine Gastroenterology
DX: K76.0 Fatty (change of) liver, not elsewhere classified (principal); R74.8 Abnormal levels of other serum enzymes
CPT/HCPCS: 36415; 80053; 82103; 82390; 82728; 83516; 83540; 83550; 84165; 85025; 86038; 86803; 87340

== ENCOUNTER → 2022-09-21 | Outpatient (CLI) | payer OTHER ==
--- NOTE | 2022-09-21 11:42 | CT ---
EXAMINATION TYPE: CT chest w con DATE OF EXAM: 09/21/2022 COMPARISON: 08/10/2021 HISTORY: f/u nodules CT DLP: 493.5 mGycm Automated exposure control for dose reduction was used. TECHNIQUE: CT scan of the chest is performed with IV Contrast, patient injected with 70cc mL of Isovue 300. MIP Images are created on CT scanner and reviewed. 3D reconstructed images are created on an independent workstation and reviewed. FINDINGS: LUNGS: The lungs are grossly clear, there is no concerning consolidative pneumonia. There is no ple ural effusion or pneumothorax seen. The tracheobronchial tree is patent. There is a stable 4 mm nodule right upper lobe axial image 20. There is a stable 7 mm nodule right up per lobe axial image 33. A 5 mm and 3 mm nodule left upper lobe axial image 27 retrospectively stable . MEDIASTINUM: There are no greater than 1 cm hilar or mediastinal lymph nodes. No pericardial effusi on is seen. Aorta normal caliber. Mild atherosclerotic changes. OTHER: Nonspecific calcification adjacent to the spleen. Liver low in attenuation relate to hepatic steatosis. Postcholecystectomy changes noted. Hypertrophic degenerative changes spine. Nonspecific sc lerosis left anterior rib cage. IMPRESSION: 1. The multiple bilateral pulmonary nodules are stable relative to the prior exam. No new pulmonary n odules. Recommend six-month follow-up to confirm stability. 2. Correlate for hepatic steatosis.
== END | disposition home or self-care (01) ==
LOC: RADCTMAIN 09:56
PROVIDERS: ATTEND Internal Medicine
DX: R91.8 Other nonspecific abnormal finding of lung field (principal); K76.0 Fatty (change of) liver, not elsewhere classified
CPT/HCPCS: 71260; Q9967

== ENCOUNTER → 2023-02-05 | Outpatient (CLI) | payer MEDICARE, OTHER ==
[2023-02-05 15:40] LABS: Basophils # (A) 0.05 X 10*3/uL (0.00-0.10); Basophils % (A) 0.7 %; Eosinophils % (A) 4.4 %; HCT 39.2 % (37.2-46.3); HGB 12.6 g/dL (12.0-15.0); Immature Grans, Automated 0.3 %; Lymphocytes # (A) 1.93 X 10*3/uL (0.90-5.00); Lymphocytes % (A) 28.3 %; MCH 28.4 pg (27.0-32.0); MCHC 32.1 g/dL (32.0-37.0); MCV 88.3 fL (80.0-97.0); Mean Platelet Volume 10.8 fL (9.5-12.2); Monocytes # (A) 0.42 X 10*3/uL (0.20-1.00); Monocytes % (A) 6.2 %; NRBC Per 100 WBC 0 /100 WBCS (0.0-0.0); Neutrophils % (A) 60.1 %; Platelet Count 270 X 10*3/uL (140-440); RBC 4.44 X 10*6/uL (4.10-5.20); RDW 14.3 % (11.5-14.5); WBC 6.82 X 10*3/uL (4.50-10.00)
[2023-02-05 15:56] LABS: African American GFR (CKD) 97.2 (60.0-200.0); Albumin 4.2 g/dL (3.8-4.9); Albumin/Globulin Ratio 1.47 (1.60-3.17); Anion Gap 11.9 mmol/L (10.00-18.00); BUN/Creat Ratio 23.74 Ratio (12.00-20.00); Blood Urea Nitrogen 18.4 mg/dL (9.0-27.0); Calcium 9.8 mg/dL (8.7-10.3); Carbon Dioxide 27.7 mmol/L (20.0-27.5); Globulin 2.9 g/dL (1.6-3.3); Non-African American GFR(CKD) 83.9 (60.0-200.0); Total Bilirubin 0.7 mg/dL (0.30-1.20); Total Protein 7.1 g/dL (6.2-8.2)
== END | disposition home or self-care (01) ==
LOC: LABWHC1 07:29
PROVIDERS: ATTEND Internal Medicine Interventional Cardiology
DX: Z01.812 Encounter for preprocedural laboratory examination (principal); R94.39 Abnormal result of other cardiovascular function study
CPT/HCPCS: 80053; 85025

== ENCOUNTER → 2023-02-05 | Outpatient (CLI) | payer MEDICARE, OTHER ==
[2023-02-05 16:10] LABS: Chol/HDL Ratio 4.48 Ratio; Creatine Kinase 104 U/L (26-186); LDL Cholesterol,Calculated 129.8 mg/dL (0.0-131.0)
[2023-02-05 19:02] LABS: Microalbumin Creatinine Ratio <30 mg/g Creat (0-30)
== END | disposition home or self-care (01) ==
LOC: LABWHC1 07:40
PROVIDERS: ATTEND Family Medicine
DX: Z00.00 Encounter for general adult medical examination without abnormal findings (principal); Z13.21 Encounter for screening for nutritional disorder; Z13.228 Encounter for screening for other metabolic disorders; Z13.220 Encounter for screening for lipoid disorders; I10 Essential (primary) hypertension; F41.9 Anxiety disorder, unspecified; R73.03 Prediabetes
CPT/HCPCS: 36415; 80061; 82043; 82306; 82550; 82570; 84443

== ENCOUNTER 2023-02-07 10:34 | Day surgery (SDC) | payer MEDICARE, OTHER ==
[2023-02-01 11:48] VITALS: BMI 39.7
[~2023-02-07 10:34] MED LIST changes: +ALPRAZolam 0.25 MG TAB PO PRN; +ALPRAZolam 0.5 MG TAB PO PRN; +ASPIRIN 325 MG TAB PO ONE; +ATORVASTATIN 80 MG TAB PO ONE; +HEPARIN SODIUM,PORCINE 10,000 UNIT in SODIUM CHLORIDE 0.9% 1,000 ML IRRIGATION PRN; +HEPARIN SODIUM,PORCINE 2,500 UNIT in SODIUM CHLORIDE 0.9% 250 ML IRRIGATION PRN; -LACTATED RINGERS 1,000 ML IV SCH; +NITROGLYCERIN SL TABS 0.4 MG TAB SUBLINGUAL PRN; +SODIUM CHLORIDE 0.9% 1,000 ML in EMPTY BAG 1 BAG IV SCH
[2023-02-07] MEDS ORDERED: SODIUM CHLORIDE 0.9% 1,000 ML IV ONE (10:48)
[2023-02-07 11:01] VITALS: RESP 16; TEMP 98
[2023-02-07 11:04] LABS: Glucose,Whole Blood 114 mg/dL (70-110)
[2023-02-07] MEDS ORDERED: HEPARIN SODIUM 1,000 UN/ML (10ML VL) ONE (11:55)
[2023-02-07] MEDS ORDERED: fentaNYL (PF) 50 MCG/ML 2 ML AMP ONE (11:55)
[2023-02-07] MEDS ORDERED: VERAPAMIL 2.5 MG/ML 2 ML AMP ONE (11:55)
[2023-02-07] MEDS ORDERED: fentaNYL (PF) 50 MCG/ML 2 ML AMP IVP ONE (12:08)
[2023-02-07] MEDS ORDERED: LIDOCAINE 1% INJ 10MG/ML (5 ML VIAL-PF) SQ ONE (12:11)
[2023-02-07] MEDS ORDERED: VERAPAMIL SYRINGE (5 MG/10 ML) INTRAARTER ONE (12:12)
[2023-02-07] MEDS ORDERED: HEPARIN SODIUM 1,000 UN/ML (10ML VL) IVP ONE (12:18)
[2023-02-07] MEDS ORDERED: IOPAMIDOL-370 125ML BTL INJ ONE (12:22)
[2023-02-07] MEDS ORDERED: RX INFO: IV CONTRAST WAS GIVEN 1 EACH MISC MISCELLANE PRN (12:32)
--- NOTE | 2023-02-07 12:37 | P.CARDCATH ---
Date of Procedure: 02/07/23 Description of Procedure: Cardiac Catheterization: The patient is a 57-year-old female with history of hypertension and diabetes who has been complaining of dyspnea and occasional chest discomfort. She had an abnormal MPI. Recommendations were made regarding cardiac catheterization, the risks and the complications were discussed with the patient who is in full understanding and agreement. Procedure Description: Patient was brought to lab rn in fasting semi-sedated state after receiving Fentanyl and Benadryl achieiving moderate conscious sedated state. Using Xylocaine Anesthesia and Seldinger technique, a 6-Jamaican sheath was introduced in the right radial artery . Subsequently, selective coronary angiography was performed using a 5-Jamaican 3.5 bend Darshana catheter. Multiple views of the coronary artery including hemiaxial views were obtained. The 5 Darshana right catheter was used to cross the aortic valve and LVEDP was calculated. Following that, catheter and sheath were removed. Hemostasis was obtained with deployment of TR band . There was no immediate complication. Patient was returned to room in stable condition. Of note, the patient received a total of 5000 units of intravenous heparin as well as intra-arterial verapamil. Findings: Left main: This is a short sized vessel, bifurcating into LAD and left circumflex, the left main has no high-grade stenosis LAD: This is a large size vessel, reaching to the apex, giving rise to a large diagonal branch, the LAD has no evidence of high-grade stenosis Left circumflex: This is a large nondominant vessel giving rise to a large obtuse marginal branch that has no evidence of high-grade stenosis RCA: This is a dominant vessel bifurcating into PDA and PLV, the RCA and its branches have no evidence of obstructive CAD Left Ventriculogram: Not performed Hemodynamics: There was no gradient across the aortic valve , LVEDP was 18-22 mmHg Conclusion: 1. Normal coronary arteries 2. Right dominance 3. Mildly elevated LVEDP Recommendations: I have recommended to continue medical therapy, I see no evidence of obstructive disease. The findings and the recommendations were discussed with the patient and the family and they were in full understanding and agreement. Duration of sedation is 12 minutes.
[2023-02-07] MEDS ORDERED: SODIUM CHLORIDE 0.9% 1,000 ML IV SCH (12:45)
[2023-02-07 14:55] VITALS: BP 120/63; PULSE 88
[2023-02-07] MEDS ORDERED: METOPROLOL SUCCINATE (ER) 25 MG TAB.ER.24H PO SCH (21:00)
[2023-02-08] MEDS ORDERED: ASPIRIN 81 MG PO SCH (09:00)
[2023-02-08] MEDS ORDERED: LOSARTAN 50 MG TAB PO SCH (09:00)
== END 2023-02-07 16:07 | disposition home or self-care (01) ==
LOC: CATHCVL 10:34
PROVIDERS: ATTEND Internal Medicine Interventional Cardiology
DX: R07.89 Other chest pain (principal); I10 Essential (primary) hypertension; E78.2 Mixed hyperlipidemia; E11.9 Type 2 diabetes mellitus without complications; Z88.5 Allergy status to narcotic agent; Z88.2 Allergy status to sulfonamides; Z79.899 Other long term (current) drug therapy; Z87.891 Personal history of nicotine dependence
CPT/HCPCS: 93458; C1769 ×2; C1894; J2001; J3010; J1644; Q9967

== ENCOUNTER → 2023-04-10 | Outpatient (CLI) | payer MEDICARE, OTHER ==
[2023-04-10 14:59] LABS: African American GFR (CKD) >90 (>60 ml/min/1.73 sqM); Blood Urea Nitrogen 17 mg/dL (7-17); Non-African American GFR(CKD) 79 (>60 ml/min/1.73 sqM)
--- NOTE | 2023-04-11 15:19 | CT ---
EXAMINATION TYPE: CT chest w con DATE OF EXAM: 04/10/2023 COMPARISON: 09/21/2022 HISTORY: lung nodule CT DLP: 399.5 mGycm, Automated exposure control for dose reduction was used. CONTRAST: Performed injected with 100 cc mL of Isovue 300. TECHNIQUE: Axial images were obtained at 5 mm thick sections. Reconstructed images are reviewed on [employer] computer in the coronal plane. FINDINGS: Portion of the thyroid visualized is normal. There is a 0.7 cm nodule within the periphery of the right lung. Image 31. This was present previousl y and appears stable. There is a small density within the left posterior lung, image 26, measuring 0. 5 cm. This was present previously. There is a stable 0.4 cm nodule anterolateral right upper lung fie ld nodule. Series 4 image 22. No enlarged mediastinal or hilar adenopathy is evident. The ascending aorta diameter at the level o f the main pulmonary artery is 3.7 cm. The main pulmonary artery diameter at the bifurcation is 3.[address] sections are obtained through the upper abdomen. Abdomen is essentially unremarkable. IMPRESSIONS: 1. Stable appearing scattered nodules, the largest in the right midlung periphery measures 0.7 cm.
== END | disposition home or self-care (01) ==
LOC: RADCTMAIN 13:48
PROVIDERS: ATTEND Internal Medicine
DX: R91.8 Other nonspecific abnormal finding of lung field (principal)
CPT/HCPCS: 82565; 84520; 71260; 36415; Q9967

== ENCOUNTER → 2023-05-15 | Outpatient (CLI) | payer MEDICARE, OTHER ==
[2023-05-15 16:10] LABS: ALT 66 U/L (8-44); AST 39 U/L (13-35); Albumin 4.2 d/dL (3.8-4.9); Albumin/Globulin Ratio 1.56 Ratio (1.60-3.17); Alkaline Phosphatase 110 U/L (41-126); Bilirubin, Conjugated 0.25 mg/dL (0.20-0.40); Bilirubin,Unconjugated 0.75 mg/dL (0.20-1.00); Blood Urea Nitrogen 16.4 mg/dL (9.0-27.0); Calcium 10.1 mg/dL (8.7-10.3); Carbon Dioxide 26.3 mmol/L (21.6-31.8); Chloride 100 mmol/L (96-109); Globulin 2.7 d/dL (1.6-3.3); Glucose 139 mg/dL (70-110); Potassium 3.7 mmol/L (3.5-5.5); Sodium 140 mmol/L (135-145); Total Protein 6.9 d/dL (6.2-8.2)
[2023-05-15 16:16] LABS: Basophils # (A) 0.03 X 10*3/uL (0.00-0.10); Basophils % (A) 0.5 %; Eosinophils # (A) 0.23 X 10*3/uL (0.04-0.35); Eosinophils % (A) 3.7 %; HCT 39.2 % (37.2-46.3); HGB 12.5 d/dL (12.0-15.0); Lymphocytes # (A) 1.64 X 10*3/uL (0.90-5.00); Lymphocytes % (A) 26.4 %; MCH 28.7 pg (27.0-32.0); MCHC 31.9 d/dL (32.0-37.0); MCV 89.9 FL (80.0-97.0); Mean Platelet Volume 11.4 FL (9.5-12.2); Monocytes # (A) 0.33 X 10*3/uL (0.20-1.00); Monocytes % (A) 5.3 %; NRBC Per 100 WBC 0 X 10*3/uL (0.00-0.01); Neutrophils # (A) 3.94 X 10*3/uL (1.80-7.70); Neutrophils % (A) 63.5 %; Platelet Count 297 X 10*3/uL (140-440); RBC 4.36 X 10*6/uL (4.10-5.20); RDW 14.4 % (11.5-14.5); WBC 6.21 X 10*3/uL (4.50-10.00)
== END | disposition home or self-care (01) ==
LOC: LABWHC1 10:30
PROVIDERS: ATTEND Nurse Practitioner Family
DX: K76.0 Fatty (change of) liver, not elsewhere classified (principal); R74.8 Abnormal levels of other serum enzymes
CPT/HCPCS: 36415; 80053; 82248; 83516; 85025

== ENCOUNTER → 2023-08-20 | Outpatient (CLI) | payer MEDICARE, OTHER ==
[2023-08-20 14:19] VITALS: BP 111/72; PULSE 71; RESP 17; TEMP 98.3
--- NOTE | 2023-08-20 14:48 | P.HPOB ---
History of Present Illness H&P Date: 08/20/23 Chief Complaint: The patient is here for her routine gynecologic exam and ma mmogram. This is a 58-year-old with an LMP of 2019. The patient is without gynecologic complaints and denies any postmenopausal bleeding. She has had low- grade OSEAS Pap smears with negative high-risk HPV testing. She did not do the colposcopy is recommended. Her most recent Pap smear cotest on 08/07/2022 is negative. Review of Systems The patient has lost 7 pounds over the last year. She did this with increased activity and was walking several miles most days of the week until she started having back problems. She denies respiratory, cardiac, or G.I. problems. Past Medical History Past Medical History: Diabetes Mellitus, GERD/Reflux, Hypertension, Osteoarthritis (OA) Additional Past Medical History / Comment(s): Irregular heartbeat. Environmental Allergies. 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 Chronic back problems. Degenerative disc disease. Enlarged liver. 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 High-grade cervical dysplasia in 2005 treated with CKC. History of Any Multi-Drug Resistant Organisms: None Reported Past Surgical History: Cholecystectomy, Orthopedic Surgery Additional Past Surgical History / Comment(s): Conization of the cervix 2005. Colonoscopy, CERVICAL FUSION, PAIN CLINIC PROCEDURES Past Anesthesia/Blood Transfusion Reactions: Motion Sickness Additional Past Anesthesia/Blood Transfusion Reaction / Comment(s): PT STATES PALMS OF HAND WERE ITCHY FOR SEVERAL DAYS POST EPIDURAL INJECTION Past Psychological History: No Psychological Hx Reported Smoking Status: Former smoker Past Alcohol Use History: Occasional (1-2 drinks every other week.) Additional Past Alcohol Use History / Comment(s): Previous social smoker and she has quit. Past Drug Use History: None Reported Additional History: She is and has not sexually active at this time. She is disabled. - Past Family History Father Family Medical History: Cancer, CVA/TIA, Myocardial Infarction (VT) Additional Family Medical History / Comment(s): prostate cancer Mother Family Medical History: Congestive Heart Failure (CHF), Diabetes Mellitus, Hypertension Daughter(s) Family Medical History: Cancer Additional Family Medical History / Comment(s): low grade non hodgkins lymphoma of her gums Brother(s) Family Medical History: Cancer Additional Family Medical History / Comment(s): Skin cancer on the nose. Sister(s) Additional Family Medical History / Comment(s): Some form of arthritis. Medications and Allergies Home Medications Medication Instructions Recorded Confirmed Type Loratadine 10 mg PO QAM 07/29/18 08/20/23 History Metoprolol Succinate (ER) [Toprol 25 mg PO HS 07/29/18 08/20/23 History Xl] Omeprazole 40 mg PO QAM 07/29/18 08/20/23 History Cholecalciferol [Vitamin D3 (25 1,000 unit PO DAILY 07/26/20 08/20/23 History Mcg = 1000 Iu)] Losartan [Cozaar] 50 mg PO DAILY 07/26/20 08/20/23 History Gabapentin 600 mg PO TID 11/30/20 08/20/23 History Latanoprost/Pf [Latanoprost 0.005% 1 drop BOTH EYES HS 11/30/20 08/20/23 History Eye Drop] hydroCHLOROthiazide [Hydrodiuril] 50 mg PO DAILY 11/30/20 08/20/23 History DULoxetine HCL [Cymbalta] 30 mg PO BID 08/02/21 08/20/23 History metFORMIN HCL [metFORMIN HCL ER 500 mg PO DAILY 05/24/22 08/20/23 History Osmotic] Meloxicam [Mobic] 7.5 mg PO Q12HR 08/07/22 08/20/23 History Zinc Gluconate [Zinc] 50 mg PO DAILY 08/07/22 08/20/23 History Aspirin [Adult Low Dose Aspirin EC] 81 mg PO DAILY 02/01/23 08/20/23 History Baclofen 10 mg PO DIRECTED PRN 08/20/23 08/20/23 History HYDROcodone/APAP 7.5-325MG [[place] 1 tab PO DIRECTED PRN 08/20/23 08/20/23 History 7.5-325] Allergies Allergy/AdvReac Type Severity Reaction Status Date / Time codeine Allergy Severe SEVERE Verified 08/20/23 14:03 NAUSEA Sulfa (Sulfonamide Allergy Severe Rash/Hives, Verified 08/20/23 14:03 Antibiotics) SEVER HEADACHE, COULDN'T TALK OR SEE. adhesive Allergy Unknown RED BUMPS, Verified 08/20/23 14:03 SKIN IRRITATION citalopram hydrobromide Allergy HEAD FELT Verified 08/20/23 14:03 [From Celexa] NUMB, DID NOT FEEL WELL. sertraline [From Zoloft] AdvReac Unknown HEAD FELT Verified 08/20/23 14:03 NUMB EEG GEL Allergy Rash/Hives Uncoded 08/20/23 14:03 Exam Vital Signs Temp Pulse Resp BP Pulse Ox 08/20/23 14:07 98.3 F 71 17 111/72 97 Intake and Output 08/19/23 08/20/23 08/20/23 22:59 06:59 14:59 Other: Weight 113.398 kg Height 5 feet 6 inches, weight 250 pounds, BMI 40.4. This is a well-developed well-nourished heavyset white female who is alert and oriented times 3 in no acute distress. HEENT: Within normal limits. NECK: Supple without mass or thyromegaly. CHEST AND LUNGS: Clear to auscultation. HEART: Regular rate and rhythm. BREASTS: Are without mass or discharge. AXILLARY EXAM: Negative for adenopathy. BACK: Negative for CVA tenderness. ABDOMEN: Soft, nontender, without palpable masses. PELVIC EXAM: Normal external genitalia with mild atrophy. Cervix and vagina appear normal mild atrophy. The cervix is somewhat stenotic secondary to atrophy and history of conization. There is no unusual discharge. There is no evidence of prolapse. The uterus is midposition, nongravid size and nontender. There are no palpable adnexal masses or tenderness. Bimanual examination is somewhat limited secondary to her size. RECTAL EXAM: Rectovaginal exam is negative for mass or tenderness and is negative for occult blood. EXTREMITIES: Nontender. IMPRESSION: 1. 66-year-old menopausal female with normal gynecologic exam. 2. Previous low-grade OSEAS Pap smears with negative high-risk HPV testing. The patient chose to not have a colposcopy done when it was indicated. Her last Pap smear was negative on 08/07/2022. PLAN: 1. Pap smear cotest was performed. 2. Self breast awareness was discussed with the patient. We have also discussed symptoms associated with inflammatory breast cancer. 3. Screening mammogram will be done today. 4. Osteoporosis prevention was discussed. I have stressed the importance of adequate calcium, vitamin D and regular exercise. Recommended amounts of calcium and vitamin D were also discussed. Bone density testing was recommended based on her age. The order slip will be mailed to the patient. 5. PHQ-2 questionaire was given and she scores 0. This is a negative screen for depression. 6. She was advised to return in one year for her annual well woman exam.
--- NOTE | 2023-08-21 14:19 | MM ---
Reason for Exam: Screening (asymptomatic). Last mammogram was performed 1 year(s) and 2 month(s) ago. Patient History: Menarche at age 11. First Full-Term at age 18. Postmenopausal. Patient has history of breast feeding. Hormonal Contraceptives, from age 16 until age 52. 12/17/2006, Benign Core Biopsy on the right side. 12/13/2008, Benign Core Biopsy on the left side. Risk Values: Philomena 5 year model risk: 1.9%. NCI Lifetime model risk: 9.7%. Prior Study Comparison: 02/07/2021 Right Diagnostic Mammogram, [facility]. 08/11/2021 Right Diagnostic Mammogram, [facility]. 06/05/2022 Bilateral MG screening mammo w CAD, [facility]. Tissue Density: The breast tissue is heterogeneously dense. This may lower the sensitivity of mammography. Findings: Analyzed By CAD. Pattern appears symmetrical and stable. 4 markers within the left breast. Chronic nodularity is within the left breast. No significant interval changes are evident. Benign vascular calcifications within the right breast. Couple benign calcifications are within the left breast. No suspicious groups of microcalcifications, spiculated or lobular masses, architectural distortion or other secondary signs of malignancy are mammographically apparent. Overall Assessment: Benign, BI-RAD 2 Management: Screening Mammogram of both breasts in 1 year. A negative mammogram report should not preclude additional follow up of suspicious palpable abnormalities. Patient should continue monthly self breast exam. A clinical breast exam by your physician is recommended on an annual basis and results should be correlated with mammographic findings. Electronically signed and approved by: Al Leyva D.O. Radiologis
== END ==
LOC: WWCWWP 13:41
PROVIDERS: ATTEND Obstetrics & Gynecology
DX: Z12.31 Encounter for screening mammogram for malignant neoplasm of breast (principal); E11.9 Type 2 diabetes mellitus without complications; I10 Essential (primary) hypertension; K21.9 Gastro-esophageal reflux disease without esophagitis; M51.9 Unspecified thoracic, thoracolumbar and lumbosacral intervertebral disc disorder; M19.90 Unspecified osteoarthritis, unspecified site; Z78.0 Asymptomatic menopausal state; Z87.891 Personal history of nicotine dependence; Z88.2 Allergy status to sulfonamides; Z88.5 Allergy status to narcotic agent; Z91.048 Other nonmedicinal substance allergy status; Z88.1 Allergy status to other antibiotic agents; Z88.8 Allergy status to other drugs, medicaments and biological substances; Z79.899 Other long term (current) drug therapy; Z79.84 Long term (current) use of oral hypoglycemic drugs; Z79.82 Long term (current) use of aspirin
CPT/HCPCS: 77067

== ENCOUNTER → 2023-10-08 | Outpatient (CLI) | payer MEDICARE, OTHER ==
[2023-10-08 08:12] LABS: African American GFR (CKD) >90 (>60 ml/min/1.73 sqM); Blood Urea Nitrogen 18 mg/dL (7-17); Non-African American GFR(CKD) >90 (>60 ml/min/1.73 sqM)
--- NOTE | 2023-10-08 09:03 | CT ---
EXAMINATION TYPE: CT chest w con DATE OF EXAM: 10/08/2023 COMPARISON: 04/10/2023, 09/21/2022, 08/10/2021 HISTORY: 58-year-old female R91.8, follow-up nodule TECHNIQUE: Contiguous axial scanning of the chest after the administration of 100ml mL of Isovue 300. Coronal/sagittal reconstructions performed. CT DLP: 735mGycm. Automatic exposure control utilized for a dose reduction. FINDINGS: The heart is upper limits of normal in size without pericardial effusion. Ectatic ascending aorta 3.7 cm. 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 Bilateral hilar adenopathy measuring up to 2.1 cm (versus 1.4 cm) on the right and 1.3 cm on the left (versus 1.1 cm, previously). A few scattered pulmonary nodules measuring up to 6 mm remain unchanged back to 2020. Calcified granu bernice basilar left lower lobe unchanged as well. A 4 mm lateral left lower lobe pulmonary nodule, axial image 31 unchanged from 09/21/2022 also sugges ting a benign etiology. No consolidation or pleural effusion. Diminished attenuation of the hepatic parenchyma. Cholecystectomy clips. Bones: Mild multilevel degenerative disc disease mid to lower thoracic spine. IMPRESSION: 1. A few scattered pulmonary nodules measuring up to 6 cm remain unchanged back to 08/10/2021. An add itional 4 mm left lower lobe pulmonary nodule remains unchanged back to 09/21/2022. Findings suggest a benign etiology. No further follow-up for these nodules is needed per Fleischner guidelines. 2. Slight interval progression in hilar adenopathy currently measuring up to 2.1 cm versus 1.4 cm, pr eviously. These may be reactive/post inflammatory. Ongoing short interval follow-up at 6 months recom mended to reassess. 3. Severe hepatic steatosis. Appropriate clinical management advised.
== END | disposition home or self-care (01) ==
LOC: RADCTMAIN 07:36
PROVIDERS: ATTEND Internal Medicine
DX: R91.8 Other nonspecific abnormal finding of lung field (principal); R59.0 Localized enlarged lymph nodes; K76.0 Fatty (change of) liver, not elsewhere classified
CPT/HCPCS: 82565; 84520; 71260; 36415; Q9967

== ENCOUNTER → 2023-11-25 | Outpatient (CLI) | payer MEDICARE, OTHER ==
--- NOTE | 2023-11-25 09:31 | BD ---
EXAMINATION TYPE: Axial Bone Density DATE OF EXAM: 11/25/2023 CLINICAL HISTORY: 58 years old Female. ICD-10 CODE: Z78.0 ASYMPTOMATIC MENOPAUSAL STATE Height: 66in Weight: 259lb FRAX RISK QUESTIONS: Secondary Osteoporosis: RISK FACTORS HISTORY OF: MEDICATIONS: EXAM MEASUREMENTS: Bone mineral densitometry was performed using the Sure[employer] System. Bone mineral density as measured about the Lumbar spine is: ----- L1-L4(G/cm2): 1.280 T Score Values are as follows: ----- L1: 0.1 ----- L2: 0.7 ----- L3: 1.5 ----- L4: 0.8 ----- L1-L4: 0.8 Z Score Values are as follows: ----- L1: 0.1 ----- L2: 0.8 ----- L3: 1.5 ----- L4: 0.9 ----- L1-L4: 0.9 First dexa at [facility] Bone mineral density about the R hip (g/cm2): 1.222 Bone mineral density about the L hip (g/cm2): 1.190 T Score values are as follows: -----R Neck: 0.7 -----L Neck: 0.8 -----R Total: 1.7 -----L Total: 1.4 Z Score values are as follows: -----R Neck: 1.2 -----L Neck: 1.3 -----R Total: 1.8 -----L Total: 1.5 FRAX%s: The graph provided illustrates a 4.9% chance for a major osteoporotic fx and a 0.1% chance fo r the hips probability for fx in 10 years time. IMPRESSION: Normal (Values between +1 and -1 indicate normal bone mass). Consider repeating this study in 5 year s or sooner if there is some new clinical indication. NOTE: T-SCORE=SD OF THE YOUNG ADULT MEAN.
--- NOTE | 2023-11-26 12:09 | P.PN ---
Progress Note - Text Progress Note Date: 11/26/23 OUTPATIENT FOLLOW-UP NOTE TEST(S)/RESULTS: Bone Density test done on 03/25/2024 was normal. METHOD OF NOTIFICATION: A message with this result was left on the patient's voicemail on 11/26/2023 PATIENT COMMENTS: DIAGNOSIS: Normal bone density DISCUSSION: PLAN: Repeat bone density test in 6 years.
== END | disposition home or self-care (01) ==
LOC: RADBDWWP 08:38
PROVIDERS: ATTEND Obstetrics & Gynecology
DX: Z78.0 Asymptomatic menopausal state (principal)
CPT/HCPCS: 77080

== ENCOUNTER → 2023-12-19 | Outpatient (CLI) | payer MEDICARE, OTHER ==
[2023-12-19 15:54] LABS: Basophils # (A) 0.05 X 10*3/uL (0.00-0.10); Basophils % (A) 0.3 %; Eosinophils # (A) 0.03 X 10*3/uL (0.04-0.35); Eosinophils % (A) 0.2 %; HCT 40.6 % (37.2-46.3); HGB 13.2 g/dL (12.0-15.0); Lymphocytes # (A) 2.22 X 10*3/uL (0.90-5.00); Lymphocytes % (A) 13.4 %; MCH 28.8 pg (27.0-32.0); MCHC 32.5 g/dL (32.0-37.0); MCV 88.6 FL (80.0-97.0); Mean Platelet Volume 10.5 FL (9.5-12.2); Monocytes # (A) 0.79 X 10*3/uL (0.20-1.00); Monocytes % (A) 4.8 %; NRBC Per 100 WBC 0 X 10*3/uL (0.00-0.01); Neutrophils # (A) 13.36 X 10*3/uL (1.80-7.70); Neutrophils % (A) 80.3 %; Platelet Count 403 X 10*3/uL (140-440); RBC 4.58 X 10*6/uL (4.10-5.20); RDW 14.3 % (11.5-14.5); WBC 16.62 X 10*3/uL (4.50-10.00)
[2023-12-19 16:33] LABS: BUN/Creat Ratio 30.57 Ratio (12.00-20.00); Blood Urea Nitrogen 21.4 mg/dL (9.0-27.0); Carbon Dioxide 23.3 mmol/L (21.6-31.8); Chloride 102 mmol/L (96-109); Chol/HDL Ratio 3.24 Ratio; Glucose 191 mg/dL (70-110); LDL Cholesterol,Calculated 128.5 mg/dL (0.0-131.0); Potassium 4.3 mmol/L (3.5-5.5); Sodium 139 mmol/L (135-145); VLDL Calculation 18.82 mg/dL (5.00-40.00)
[2023-12-19 16:34] LABS: ALT 87 U/L (8-44); AST 40 U/L (13-35); Albumin 4.4 g/dL (3.8-4.9); Albumin/Globulin Ratio 1.42 Ratio (1.60-3.17); Alkaline Phosphatase 123 U/L (41-126); Calcium 10.3 mg/dL (8.7-10.3); Globulin 3.1 g/dL (1.6-3.3); Total Bilirubin 0.5 mg/dL (0.3-1.2); Total Protein 7.5 g/dL (6.2-8.2)
== END | disposition home or self-care (01) ==
LOC: LABWHC1 07:31
PROVIDERS: ATTEND Internal Medicine Gastroenterology
DX: I10 Essential (primary) hypertension (principal); K76.0 Fatty (change of) liver, not elsewhere classified; F41.9 Anxiety disorder, unspecified; K21.9 Gastro-esophageal reflux disease without esophagitis; R73.03 Prediabetes
CPT/HCPCS: 36415; 80053; 80061; 82043; 82306; 82570; 84443; 85025

== ENCOUNTER → 2024-02-28 | Outpatient (CLI) | payer MEDICARE, OTHER | END | disposition home or self-care (01) | LOC: LABWHC1 10:18 | PROVIDERS: ATTEND Otolaryngology | DX: K14.0 Glossitis (principal) | CPT/HCPCS: 36415; 82607; 82746; 84207; 84443; 85025; 85652; 86038; 86235 ==

== ENCOUNTER → 2024-03-09 | Outpatient (CLI) | payer MEDICARE, OTHER ==
[2024-03-10 03:09] LABS: Basophils # (A) 0.06 X 10*3/uL (0.00-0.10); Basophils % (A) 0.6 %; Eosinophils # (A) 0.24 X 10*3/uL (0.04-0.35); Eosinophils % (A) 2.5 %; HCT 39.4 % (37.2-46.3); HGB 12.6 g/dL (12.0-15.0); Lymphocytes % (A) 22.3 %; MCH 28.6 pg (27.0-32.0); MCV 89.5 FL (80.0-97.0); Mean Platelet Volume 11.2 FL (9.5-12.2); Monocytes # (A) 0.49 X 10*3/uL (0.20-1.00); Monocytes % (A) 5.2 %; NRBC Per 100 WBC 0 X 10*3/uL (0.00-0.01); Platelet Count 334 X 10*3/uL (140-440); RDW 14.3 % (11.5-14.5); WBC 9.43 X 10*3/uL (4.50-10.00)
[2024-03-10 03:31] LABS: Erythrocyte Sedimentation Rate 27 mm/Hr (0-30)
== END | disposition home or self-care (01) ==
LOC: LABWHC1 13:05
PROVIDERS: ATTEND Otolaryngology
DX: K14.0 Glossitis (principal)
CPT/HCPCS: 36415; 85025; 85652

== ENCOUNTER → 2024-04-14 | Outpatient (CLI) | payer MEDICARE, OTHER ==
[2024-04-14 11:25] LABS: African American GFR (CKD) >90 (>60 ml/min/1.73 sqM); Blood Urea Nitrogen 16 mg/dL (7-17); Non-African American GFR(CKD) >90 (>60 ml/min/1.73 sqM)
--- NOTE | 2024-04-14 12:30 | CT ---
EXAMINATION TYPE: CT chest w con DATE OF EXAM: 04/14/2024 COMPARISON: 10/08/2023 HISTORY: nodules CT DLP: 478.8 mGycm Automated exposure control for dose reduction was used. CONTRAST: CT scan of the chest is performed with IV Contrast, patient injected with 100 mL of Isovue 300. FINDINGS: LUNGS: Stable multiple scattered sub 5 mm pulmonary nodules seen bilaterally. No change in overall si ze or number. There is no pleural effusion or pneumothorax seen. The tracheobronchial tree is paten t. MEDIASTINUM: There are no greater than 1 cm hilar or mediastinal lymph nodes. No pericardial effusi on is seen. Thoracic aorta is of normal caliber. The heart is not enlarged. UPPER ABDOMEN: Hepatic steatosis. OTHER: No additional significant abnormality is seen. IMPRESSION: 1.Stable multiple scattered sub 5 mm pulmonary nodules seen bilaterally. No change in overall size or number. Annual follow-up recommended.
== END | disposition home or self-care (01) ==
LOC: RADCTMAIN 10:45
PROVIDERS: ATTEND Internal Medicine
DX: R91.8 Other nonspecific abnormal finding of lung field (principal)
CPT/HCPCS: 82565; 84520; 71260; 36415; Q9967

== ENCOUNTER → 2024-09-08 | Outpatient (CLI) | payer MEDICARE, OTHER ==
[2024-09-08 12:54] VITALS: BP 144/80; PULSE 83; RESP 17; TEMP 98.1
--- NOTE | 2024-09-08 13:18 | P.HPOB ---
History of Present Illness H&P Date: 09/08/24 Chief Complaint: The patient is here for her routine gynecologic exam and ma mmogram. This is a 59-year-old G4, P4 with an LMP of 2019. The patient is without gynecologic complaints. Review of Systems The patient has gained 12 pounds over the last year. She attributes weight gain to her back surgery which decreased her activity. She denies respiratory, cardiac, or G.I. problems. Past Medical History Past Medical History: Diabetes Mellitus, GERD/Reflux, Hypertension, Osteoarthritis (OA) Additional Past Medical History / Comment(s): Irregular heartbeat. Environmental Allergies. 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 Chronic back problems. Degenerative disc disease. Enlarged liver. 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 High-grade cervical dysplasia in 2005 treated with CKC. History of Any Multi-Drug Resistant Organisms: None Reported Past Surgical History: Cholecystectomy, Orthopedic Surgery Additional Past Surgical History / Comment(s): Conization of the cervix 2005. Colonoscopy, CERVICAL FUSION, PAIN CLINIC PROCEDURES. Lumbar spine laminectomy 2023. Past Anesthesia/Blood Transfusion Reactions: Motion Sickness Additional Past Anesthesia/Blood Transfusion Reaction / Comment(s): PT STATES PALMS OF HAND WERE ITCHY FOR SEVERAL DAYS POST EPIDURAL INJECTION Past Psychological History: No Psychological Hx Reported Smoking Status: Former smoker Past Alcohol Use History: Occasional (3-4 drinks per month.) Additional Past Alcohol Use History / Comment(s): Previous social smoker and she has quit. Past Drug Use History: None Reported Additional History: She is and is not sexually active at this time. She is disabled. - Past Family History Father Family Medical History: Cancer, CVA/TIA, Myocardial Infarction ([place]) Additional Family Medical History / Comment(s): prostate cancer Mother Family Medical History: Congestive Heart Failure (CHF), Diabetes Mellitus, Hypertension Daughter(s) Family Medical History: Cancer Additional Family Medical History / Comment(s): low grade non hodgkins lymphoma of her gums Brother(s) Family Medical History: Cancer Additional Family Medical History / Comment(s): Skin cancer on the nose. Sister(s) Additional Family Medical History / Comment(s): Some form of arthritis. Medications and Allergies Home Medications Medication Instructions Recorded Confirmed Type Loratadine 10 mg PO QAM 07/29/18 08/20/23 History Metoprolol Succinate (ER) [Toprol 25 mg PO HS 07/29/18 08/20/23 History Xl] Omeprazole 40 mg PO QAM 07/29/18 08/20/23 History Cholecalciferol [Vitamin D3 (25 1,000 unit PO DAILY 07/26/20 08/20/23 History Mcg = 1000 Iu)] Losartan [Cozaar] 50 mg PO DAILY 07/26/20 08/20/23 History Gabapentin 600 mg PO TID 11/30/20 08/20/23 History Latanoprost/Pf [Latanoprost 0.005% 1 drop BOTH EYES HS 11/30/20 08/20/23 History Eye Drop] hydroCHLOROthiazide [Hydrodiuril] 50 mg PO DAILY 11/30/20 08/20/23 History DULoxetine HCL [Cymbalta] 30 mg PO BID 08/02/21 08/20/23 History metFORMIN HCL [metFORMIN HCL ER 500 mg PO DAILY 05/24/22 08/20/23 History Osmotic] Meloxicam [Mobic] 7.5 mg PO Q12HR 08/07/22 08/20/23 History Allergies Allergy/AdvReac Type Severity Reaction Status Date / Time codeine Allergy Severe SEVERE Verified 09/08/24 12:51 NAUSEA Sulfa (Sulfonamide Allergy Severe Rash/Hives, Verified 09/08/24 12:51 Antibiotics) SEVER HEADACHE, COULDN'T TALK OR SEE. adhesive Allergy Unknown RED BUMPS, Verified 09/08/24 12:51 SKIN IRRITATION citalopram hydrobromide Allergy HEAD FELT Verified 09/08/24 12:51 [From Celexa] NUMB, DID NOT FEEL WELL. sertraline [From Zoloft] AdvReac Unknown HEAD FELT Verified 09/08/24 12:51 NUMB EEG GEL Allergy Rash/Hives Uncoded 09/08/24 12:51 Exam Vital Signs Temp Pulse Resp BP Pulse Ox 09/08/24 12:52 98.1 F 83 17 144/80 98 Intake and Output 09/07/24 09/08/24 09/08/24 22:59 06:59 14:59 Other: Weight 118.841 kg Height 5 feet 6 inches, weight 262 pounds, BMI 42.3. This is a well-developed well-nourished heavyset white female who is alert and oriented times 3 in no acute distress. HEENT: Within normal limits. NECK: Supple without mass or thyromegaly. CHEST AND LUNGS: Clear to auscultation. HEART: Regular rate and rhythm. BREASTS: Are without mass or discharge. AXILLARY EXAM: Negative for adenopathy. BACK: Negative for CVA tenderness. ABDOMEN: Soft, nontender, without palpable masses. PELVIC EXAM: Normal external genitalia with minimal atrophy. Cervix and vagina appear normal with mild atrophy. There is no unusual discharge. There is no evidence of prolapse. The uterus is midposition, nongravid size and nontender. There are no palpable adnexal masses or tenderness. Bimanual examination is somewhat limited secondary to her size. RECTAL EXAM: Rectovaginal exam is negative for mass or tenderness and is negative for occult blood. EXTREMITIES: Nontender. IMPRESSION: 1. 59-year-old menopausal female with normal gynecologic exam. 2. History of conization of the cervix in 2005. She previously had low-grade changes on her Pap smear with negative high-risk HPV testing. Her last 2 Pap smear cotest on 08/07/2022 and 08/20/2023 were negative. PLAN: 1. Per the ASCCP management guidelines we will plan on repeating the Pap smear cotest in 1 to 2 years. 2. Self breast awareness was discussed with the patient. We have also discussed symptoms associated with inflammatory breast cancer. 3. Osteoporosis prevention was discussed. She had a normal bone density test done on 11/25/2023. Will plan on repeating this after about 6 years. 4. STD prevention was discussed. She states she has met a man but has not been sexually active. I have recommended condom use if she is sexually active. 5. She was advised to return in one year for her annual well woman exam.
== END | disposition home or self-care (01) ==
LOC: WWCWWP 12:28
PROVIDERS: ATTEND Obstetrics & Gynecology
DX: Z12.31 Encounter for screening mammogram for malignant neoplasm of breast (principal); Z78.0 Asymptomatic menopausal state; Z87.410 Personal history of cervical dysplasia; Z87.891 Personal history of nicotine dependence; Z88.2 Allergy status to sulfonamides; Z88.5 Allergy status to narcotic agent; Z91.048 Other nonmedicinal substance allergy status; Z88.8 Allergy status to other drugs, medicaments and biological substances
CPT/HCPCS: 77067

== ENCOUNTER → 2024-11-26 | Outpatient (CLI) | payer MEDICARE, OTHER ==
[2024-11-26 10:41] LABS: Basophils # (A) 0.05 X 10*3/uL (0.00-0.10); Basophils % (A) 0.6 %; Eosinophils # (A) 0.38 X 10*3/uL (0.04-0.35); Eosinophils % (A) 4.8 %; HCT 39.9 % (37.2-46.3); HGB 12.9 g/dL (12.0-15.0); Lymphocytes # (A) 1.88 X 10*3/uL (0.90-5.00); Lymphocytes % (A) 23.5 %; MCHC 32.3 g/dL (32.0-37.0); MCV 86.7 FL (80.0-97.0); Mean Platelet Volume 10.8 FL (9.5-12.2); Monocytes # (A) 0.45 X 10*3/uL (0.20-1.00); Monocytes % (A) 5.6 %; NRBC Per 100 WBC 0 X 10*3/uL (0.00-0.01); Neutrophils # (A) 5.21 X 10*3/uL (1.80-7.70); Neutrophils % (A) 65.2 %; Platelet Count 299 X 10*3/uL (140-440); RDW 15.2 % (11.5-14.5); WBC 7.99 X 10*3/uL (4.50-10.00)
[2024-11-26 11:18] LABS: ALT 64 U/L (8-44); AST 40 U/L (13-35); Albumin 4.3 g/dL (3.8-4.9); Albumin/Globulin Ratio 1.54 Ratio (1.60-3.17); Alkaline Phosphatase 126 U/L (41-126); BUN/Creat Ratio 21.62 Ratio (12.00-20.00); Blood Urea Nitrogen 17.3 mg/dL (9.0-27.0); Calcium 9.4 mg/dL (8.7-10.3); Carbon Dioxide 26.5 mmol/L (21.6-31.8); Chloride 103 mmol/L (96-109); Chol/HDL Ratio 2.31 Ratio; Creatine Kinase 164 U/L (26-186); Globulin 2.8 g/dL (1.6-3.3); Glucose 151 mg/dL (70-110); LDL Cholesterol,Calculated 56.8 mg/dL (0.0-131.0); Potassium 3.8 mmol/L (3.5-5.5); Sodium 141 mmol/L (135-145); Total Protein 7.1 g/dL (6.2-8.2)
== END | disposition home or self-care (01) ==
LOC: LABWHC1 07:07
PROVIDERS: ATTEND Internal Medicine Gastroenterology
DX: I10 Essential (primary) hypertension (principal); E11.65 Type 2 diabetes mellitus with hyperglycemia; F41.9 Anxiety disorder, unspecified; G95.0 Syringomyelia and syringobulbia; K76.0 Fatty (change of) liver, not elsewhere classified; K21.9 Gastro-esophageal reflux disease without esophagitis; M51.370 Other intervertebral disc degeneration, lumbosacral region with discogenic back pain only; Z79.899 Other long term (current) drug therapy
CPT/HCPCS: 36415; 80053; 80061; 82043; 82306; 82550; 82570; 84443; 85025

== ENCOUNTER → 2025-04-16 | Outpatient (CLI) | payer MEDICARE, OTHER ==
[2025-04-16 10:26] LABS: African American GFR (CKD) >90 (>60 ml/min/1.73 sqM); Blood Urea Nitrogen 20 mg/dL (7-17); Non-African American GFR(CKD) >90 (>60 ml/min/1.73 sqM)
--- NOTE | 2025-04-16 10:58 | CT ---
EXAMINATION TYPE: CT chest w con DATE OF EXAM: 04/16/2025 10:45 AM COMPARISON: 04/14/2024. CLINICAL INDICATION: Female, 59 years old with history of R91.8OTHER NONSPECIFIC ABNORMAL FINDING OF LUNG FI; PHH, pulmonary nodule TECHNIQUE: Multiple axial images were obtained through the chest. Sagittal and coronal reformats were created for review. MIP was performed on a separate workstation. Contrast used:100 mL of Isovue 300 with IV Contrast (None if empty) Oral contrast used: (None if empty) CT DLP: 452.80 mGycm, Automated exposure control for dose reduction was used. FINDINGS: LUNGS/ PLEURA: No focal consolidation, pneumothorax or pleural effusion. Stable right middle lobe 5 mm pulmonary nodule series 3 image 33. Stable left upper lobe posterior 5 mm nodule series 3 image 21 possibly intrafissural lymph node. AIRWAY: Patent and unremarkable. HEART: Size within normal limits. No significant coronary artery calcifications. MEDIASTINUM: No gross evidence of adenopathy. VASCULATURE: No aortic aneurysm. MUSCULOSKELETAL: Mild disc degeneration changes are present throughout the thoracolumbar spine second patricia to osteophyte formation and facet joint arthropathy. Bone island within left rib 7. And T10 verte bral body. SOFT TISSUES/LYMPH NODES: Unremarkable. LOWER NECK: No significant findings. UPPER ABDOMEN: Gallbladder surgically absent. Diffuse low-attenuation liver. IMPRESSION: 1. No evidence for acute process. 2. Stable pulmonary nodules no new or enlarging pulmonary nodules. 3. Hepatic steatosis. [facility], , 04/16/2025 10:56 AM
== END | disposition home or self-care (01) ==
LOC: RADCTMAIN 09:38
PROVIDERS: ATTEND Internal Medicine
DX: R91.8 Other nonspecific abnormal finding of lung field (principal); K76.0 Fatty (change of) liver, not elsewhere classified
CPT/HCPCS: 82565; 84520; 71260; 36415; Q9967